=== PATIENT | female | born 1985 | race Caucasian/White ===

== ENCOUNTER → 2017-10-20 | Outpatient (REF) | payer OTHER | LOC: M SFHCWAGY 09:32 | DX: Z12.4 Encounter for screening for malignant neoplasm of cervix (principal) | CPT/HCPCS: 88142 ==

== ENCOUNTER → 2017-12-09 | Outpatient (CLI) | payer OTHER ==
[2017-12-09 10:11] LABS: HEMATOCRIT 41.9 % (36.0-47.0); HEMOGLOBIN 14.7 g/dl (12.0-16.0); MEAN CORPUSCULAR HEMOGLOBIN 29.8 pg (27.0-33.0); MEAN CORPUSCULAR HGB CONC 35.1 g/dl (32.0-36.5); MEAN CORPUSCULAR VOLUME 84.8 fl (80.0-96.0); PLATELET COUNT, AUTOMATED 290 10^3/uL (150-450); RED BLOOD COUNT 4.94 10^6/uL (4.00-5.40); RED CELL DISTRIBUTION WIDTH 11.9 % (11.5-14.5); WHITE BLOOD COUNT 5.5 10^3/uL (4.0-10.0)
[2017-12-09 10:42] LABS: ALBUMIN 4.2 GM/DL (3.2-5.2); ALBUMIN/GLOBULIN RATIO 1.24 (1.00-1.93); ALKALINE PHOSPHATASE 59 U/L (45-117); ALT/SGPT 17 U/L (12-78); ANION GAP 7 MEQ/L (8-16); AST/SGOT 12 U/L (7-37); BILIRUBIN,TOTAL 0.7 MG/DL (0.2-1.0); BLOOD UREA NITROGEN 11 MG/DL (7-18); CALCIUM LEVEL 8.8 MG/DL (8.5-10.1); CARBON DIOXIDE LEVEL 29 MEQ/L (21-32); CHLORIDE LEVEL 102 MEQ/L (98-107); CHOLESTEROL LEVEL 180 MG/DL (<200); CHOLESTEROL RISK RATIO 2.307 (<5); CREATININE FOR GFR 0.74 MG/DL (0.55-1.30); GLOMERULAR FILTRATION RATE > 60.0 (>60); GLUCOSE, FASTING 78 MG/DL (70-100); HDL CHOLESTEROL 78 MG/DL (>40); IRON (FE) 156 UG/DL (50-170); LDL CHOLESTEROL 84.2 MG/DL (<100); NON-HDL-C 102 MG/DL; PERCENT SATURATION 41.4 % (13.2-45.0); POTASSIUM SERUM 4.1 MEQ/L (3.5-5.1); SODIUM LEVEL 138 MEQ/L (136-145); THYROXINE (T4) 16.5 UG/DL (4.5-12.0); TOTAL 25(OH) VITAMIN D 25.4 NG/ML (30.0-100.0); TOTAL IRON BINDING CAPACITY 377 UG/DL (250-450); TOTAL PROTEIN 7.6 GM/DL (6.4-8.2); TRIGLYCERIDES LEVEL 89 MG/DL (<150)
[2017-12-09 10:43] LABS: TOTAL T3 137.9 NG/DL (60.0-181.0)
== END ==
LOC: M LAB 08:53
DX: D64.9 Anemia, unspecified (principal); E03.9 Hypothyroidism, unspecified; R53.83 Other fatigue
CPT/HCPCS: 83550

== ENCOUNTER → 2018-01-17 | Outpatient (REF) | payer OTHER | LOC: M LAB REF 18:55 | DX: D22.4 Melanocytic nevi of scalp and neck (principal) ==

== ENCOUNTER → 2018-10-24 | Outpatient (CLI) | payer OTHER ==
[2018-10-24 14:07] LABS: CHLAMYDIA DNA AMPLIFICATION NEGATIVE (NEGATIVE); GC DNA AMPLIFICATION NEGATIVE (NEGATIVE)
--- NOTE | 2018-10-25 05:34 | REP ---
Clinical: Pelvic pain . Technique: Transabdominal pelvic ultrasound followed by transvaginal examination for better evaluation of the endometrium and adnexa with color Doppler evaluation of the ovaries. Findings: Bladder is unremarkable and measures 12.2 x 11.6 x 7.3 cm . Normal retroverted uterus measures 8.9 x 3.9 x 5.4 cm . The endometrial complex measures 12.1 mm thickness. No discrete uterine or endometrial abnormalities are appreciated. Bilateral ovaries are normal in appearance and vascularity without evidence for torsion. Right ovary measures 3.3 x 1.7 x 3.7 cm ; R I = 0.41 . Left ovary measures 2.5 x 1.6 x 2.5 cm ; R I = 0.57 . Trace free fluid is nonspecific and likely physiologic. No adnexal mass lesion identified. Impression: 1. Normal pelvic ultrasound.
== END ==
LOC: M WHC 10:32
PROVIDERS: ATTEND Nurse Practitioner Family
DX: Z11.3 Encounter for screening for infections with a predominantly sexual mode of transmission (principal); R30.0 Dysuria; R10.2 Pelvic and perineal pain

== ENCOUNTER → 2018-11-02 | Outpatient (CLI) | payer OTHER ==
[2018-11-02 08:47] LABS: HEMATOCRIT 41.6 % (36.0-47.0); HEMOGLOBIN 14.3 g/dl (12.0-15.5); MEAN CORPUSCULAR HEMOGLOBIN 29.3 pg (27.0-33.0); MEAN CORPUSCULAR HGB CONC 34.4 g/dl (32.0-36.5); MEAN CORPUSCULAR VOLUME 85.2 fl (80.0-96.0); PLATELET COUNT, AUTOMATED 234 10^3/uL (150-450); RED BLOOD COUNT 4.88 10^6/uL (4.00-5.40); WHITE BLOOD COUNT 5.8 10^3/uL (4.0-10.0)
[2018-11-02 09:15] LABS: ERYTHROCYTE SEDIMENTATION RATE 3 mm/hr (0-20)
[2018-11-02 09:22] LABS: ALBUMIN 4.2 GM/DL (3.2-5.2); ALT/SGPT 16 U/L (12-78); BILIRUBIN,TOTAL 0.7 MG/DL (0.2-1.0); BLOOD UREA NITROGEN 10 MG/DL (7-18); CALCIUM LEVEL 9.2 MG/DL (8.5-10.1); CARBON DIOXIDE LEVEL 28 MEQ/L (21-32); CHLORIDE LEVEL 106 MEQ/L (98-107); CHOLESTEROL LEVEL 159 MG/DL (<200); CHOLESTEROL RISK RATIO 2.304 (<5); CREATININE FOR GFR 0.71 MG/DL (0.55-1.30); GLOMERULAR FILTRATION RATE > 60.0 (>60); GLUCOSE, FASTING 85 MG/DL (70-100); HDL CHOLESTEROL 69 MG/DL (>40); IRON (FE) 124 UG/DL (50-170); LDL CHOLESTEROL 75 MG/DL (<100); NON-HDL-C 90 MG/DL; PERCENT SATURATION 37.5 % (13.2-45.0); POTASSIUM SERUM 4.1 MEQ/L (3.5-5.1); SODIUM LEVEL 141 MEQ/L (136-145); TOTAL IRON BINDING CAPACITY 331 UG/DL (250-450); TOTAL PROTEIN 6.9 GM/DL (6.4-8.2); TRIGLYCERIDES LEVEL 76 MG/DL (<150)
[2018-11-02 09:52] LABS: TOTAL 25(OH) VITAMIN D 35.1 NG/ML (30.0-100.0)
== END ==
LOC: M LAB 08:09
PROVIDERS: ATTEND Family Medicine
DX: D64.9 Anemia, unspecified (principal); R53.83 Other fatigue; E03.9 Hypothyroidism, unspecified

== ENCOUNTER → 2018-11-10 | Outpatient (CLI) | payer OTHER ==
[~2018-11-10] MED LIST: E-Z-GAS II EFFERVESCENT PACKET (SODIUM BICARB./CITRIC ACID/SIMETHICONE) As Ordered ONE; E-Z-HD 98% w/w 340GM SUSP BTL As Ordered ONE; E-Z-PAQUE 96% w/w SUSP 176GM BTL As Ordered ONE
--- NOTE | 2018-11-10 09:16 | REP ---
Chest two views HISTORY: Abdominal pain Comparison: None A calcified granuloma is present in the right upper lobe. The left lung is clear. The heart is normal in size. The pulmonary vasculature is normal in appearance. The bony structure is intact. IMPRESSION: No acute disease. Electronically Signed by Nadeem Valadez MD 11/10/2018 09:08 A
--- NOTE | 2018-11-10 09:38 | REP ---
RIGHT UPPER QUADRANT ULTRASOUND: Real-time sonographic evaluation of the right upper quadrant performed. The gallbladder demonstrates no evidence of intraluminal sludge or calculi, wall thickening or pericholecystic fluid. There is no intrahepatic or extrahepatic biliary dilatation, common bile duct measuring 3 mm. The liver and pancreas demonstrates homogeneous echotexture with no gross mass. Right kidney demonstrates no hydronephrosis with normal size 13.1 cm in length. IMPRESSION: Negative right upper quadrant ultrasound. Electronically Signed by Mohsen Elias MD 11/10/2018 11:42 A
--- NOTE | 2018-11-10 16:33 | REP ---
Upper GI air contrast The procedure was performed under the direct supervision of Dr. Matthews. The images were reviewed with Dr. Matthews The knitter helper film shows no organomegaly or pathological masses. The intestinal gas pattern is non-specific. Liquid barium and gas producing crystals were given in the erect position as well as liquid barium in the prone oblique position in order to perform a double contrast upper GI examination. The oral and pharyngeal stages of deglutition are unremarkable. Esophageal transport is prompt and efficient and there is no esophagitis, stricture, mucosal ring or hiatal hernia. Gastroesophageal reflux is not demonstrated on this examination. The stomach singh are normally outlined . The rugal folds are smooth and regular. There is no gastritis neoplasm or ulcer disease. The duodenal singh are normally outlined . The mucosal folds are smooth and regular. There is no duodenitis pancreatitis peptic ulcer disease or neoplasm. The visualized portion of the proximal small bowel appears normal in course and caliber. Impression: Essentially unremarkable double contrast upper GI examination. 0.4 minutes of fluoro time was utilized for this procedure. Reviewed by BERYL Robin 11/10/2018 03:48 P Electronically Signed by Nestor Matthews MD 11/10/2018 04:24 P
== END ==
LOC: M RAD 07:46
PROVIDERS: ATTEND Family Medicine
DX: R10.9 Unspecified abdominal pain (principal); K27.9 Peptic ulcer, site unspecified, unspecified as acute or chronic, without hemorrhage or perforation

== ENCOUNTER → 2019-01-02 | Outpatient (REF) | payer OTHER ==
[~2019-01-02] MED LIST changes: -E-Z-GAS II EFFERVESCENT PACKET (SODIUM BICARB./CITRIC ACID/SIMETHICONE) As Ordered ONE; -E-Z-HD 98% w/w 340GM SUSP BTL As Ordered ONE; -E-Z-PAQUE 96% w/w SUSP 176GM BTL As Ordered ONE; +KLON1TAB PO; +MULT1TAB10 PO; +OMEP20CA3 PO
[2019-01-04 14:12] LABS: HPV HYBRID CAPTURE II Negative (Negative)
== END ==
LOC: M LAB REF 17:55
PROVIDERS: ATTEND Obstetrics & Gynecology
DX: Z12.4 Encounter for screening for malignant neoplasm of cervix (principal)

== ENCOUNTER 2019-01-19 07:43 | Day surgery (SDC) | payer OTHER ==
[~2019-01-19] VITALS: Ht 170.2 cm; Wt 66.0 kg
[~2019-01-19 07:43] MED LIST changes: +LR 1,000 ML IV ONE
[2019-01-19 08:15] LABS: HEMATOCRIT 38.6 % (36.0-47.0); HEMOGLOBIN 13.7 g/dl (12.0-15.5); MEAN CORPUSCULAR HEMOGLOBIN 30.2 pg (27.0-33.0); MEAN CORPUSCULAR HGB CONC 35.5 g/dl (32.0-36.5); MEAN CORPUSCULAR VOLUME 85.2 fl (80.0-96.0); PLATELET COUNT, AUTOMATED 252 10^3/uL (150-450); RED BLOOD COUNT 4.53 10^6/uL (4.00-5.40)
[2019-01-19] MEDS ORDERED: TRI-TAB16 PO (08:18)
[2019-01-19] MEDS ORDERED: dexameTHASONE 4 MG/ML 1ML VIAL (J1100) As Ordered ONE (08:21)
[2019-01-19] MEDS ORDERED: fentaNYL 250 MCG/5 ML INJECTION (J3010) As Ordered ONE (08:21)
[2019-01-19] MEDS ORDERED: ROCURONIUM BROMIDE 50 MG/5 ML VIAL As Ordered ONE (08:21)
[2019-01-19] MEDS ORDERED: KETOROLAC 60 MG/2 ML VIAL (J1885) As Ordered ONE (08:21)
[2019-01-19] MEDS ORDERED: MIDAZOLAM INJ 2 MG/2 ML VIAL (J2250) As Ordered ONE (08:21)
[2019-01-19] MEDS ORDERED: LIDOCAINE 2% INJ 100 MG/5 ML SDV (FOR ANES.) As Ordered ONE (08:21)
[2019-01-19] MEDS ORDERED: PROPOFOL 200 MG/20 ML VIAL As Ordered ONE (08:21)
[2019-01-19 08:25] LABS: HCG, SERUM QUALITATIVE NEGATIVE (NEGATIVE)
[2019-01-19] MEDS ORDERED: SCOPOLAMINE 1MG TRANSDERMAL PATCH TOP ONE (09:00)
[2019-01-19] MEDS ORDERED: METOCLOPRAMIDE INJ 10MG/2ML VIAL (J2765) As Ordered ONE (09:42)
[2019-01-19] MEDS ORDERED: ACETAMINOPHEN 1000MG 100ML IV BTL (OFIRMEV) (J0131 PER 10MG) As Ordered ONE (09:53)
[2019-01-19] MEDS ORDERED: PHENYLephrine HCL 500 MCG/5 ML (100MCG/ML) SYRINGE (J2370) As Ordered ONE (09:53)
[2019-01-19] MEDS ORDERED: LIDOCAINE 1% SDV INJ 30 ML VIAL As Ordered ONE (09:55)
[2019-01-19] MEDS ORDERED: SILVER NITRATE APPLICATOR As Ordered ONE (09:55)
[2019-01-19] MEDS ORDERED: BUPIVACAINE HCL 0.25% 30 ML VIAL As Ordered ONE (09:56)
[2019-01-19] MEDS ORDERED: METHYLENE BLUE 0.5% (5MG/ML) 10 ML AMP (PROVAYBLUE)(Q9968 PER 1MG) As Ordered ONE (09:56)
[2019-01-19] MEDS ORDERED: ePHEDrine SULFATE 25 MG/5 ML(5MG/ML) SYRINGE As Ordered ONE (10:10)
[2019-01-19] MEDS ORDERED: NEOSTIGMINE 10 MG/10 ML VIAL (J2710) As Ordered ONE (10:34)
[2019-01-19] MEDS ORDERED: GLYCOPYRROLATE INJ 0.2 MG/ML 2 ML VIAL As Ordered ONE (10:34)
[2019-01-19] MEDS ORDERED: LR 1,000 ML IV SCH ×2 (12:15)
[2019-01-19] MEDS ORDERED: ONDANSETRON 4MG/2ML VIAL (J2405) IV PRN (12:15)
[2019-01-19] MEDS ORDERED: PERCOCET 5MG/325MG TAB PO PRN (12:15)
[2019-01-19] MEDS ORDERED: PERCOCET PO (12:35)
[2019-01-19] MEDS ORDERED: IBUP80TA PO (12:37)
[2019-01-19] MEDS ORDERED: KETOROLAC 30 MG/ML VIAL (J1885) As Ordered ONE (13:26)
[2019-01-19] MEDS ORDERED: KETOROLAC 30 MG/ML VIAL (J1885) IV PRN (13:45)
[2019-01-19 14:10] VITALS: BP 97/53
--- NOTE | 2019-01-19 17:53 | RO ---
DATE OF PROCEDURE: 01/19/2019 PREOPERATIVE DIAGNOSES: 1. Chronic pelvic pain. 2. Infertility/subfertility. POSTOPERATIVE DIAGNOSES: 1. Chronic pelvic pain. 2. Infertility/subfertility. 3. Endometriosis. 4. Uterine leiomyomas, both subserosal (a 1 cm fundal and a 3 cm anterior lower uterine segment). PROCEDURES PERFORMED: 1. Diagnostic hysteroscopy with dilation and curettage 2. Laparoscopic fulguration and biopsy of endometriosis with chromopertubation. SURGEON: Jason Wade DO WELDER APPRENTICE ARC: None. ANESTHESIA TYPE: General endotracheal. SPECIMENS SENT TO PATHOLOGY: Peritoneal biopsies. ESTIMATED BLOOD LOSS: 5 mL. FLUIDS REPLACED: 800 mL lactated Ringer's. DRAINS: Oneill catheter 400 mL urine output. COMPLICATIONS: None. LAPAROSCOPIC FINDINGS: 1. Endometriotic implants in the following locations: Left pelvic sidewall (fulgurated), right uterosacral ligament (fulgurated), right ureter. 2. Uterine leiomyomas, 1 cm subserosal fundal and 3 cm subserosal anterior lower uterine segment just above the bladder. 3. Uterus sounded to 9 cm; other than two leiomyomas, there is normal uterine size, shape, and contour. 4. Hysteroscopic findings: Normal intrauterine cavity. No space-occupying mass. Bilateral ostia of the fallopian tubes were visualized and normal. No intrauterine synechiae. 5. Additional Laparoscopic findings: Normal appearing appendix, normal appearing liver edge and gallbladder. INDICATION: Stefany is a 33-year-old 1, para 1. She has a longstanding history of chronic pelvic pain that she has treated with combined oral contraceptives. She also has difficulty conceiving, and she would like a diagnostic/operative workup. The patient understood the possibility of fulguration of endometriosis. The goal of the surgery was to assess for etiology of chronic pelvic pain, and evaluate the intrauterine cavity and the intra-abdominal cavity and to assess her anatomy (and the patency of her fallopian tubes). DESCRIPTION OF PROCEDURE: The patient was counseled and consented on the risks, benefits, indications and alternatives of the procedure. Informed consent was obtained. She was taken to the operating room with an IV running and placed on the operating table in the dorsal supine position. General anesthesia was administered, and the airway secured without any difficulty. She was placed in the low lithotomy position. She was prepared and draped in the normal sterile fashion. A time-out was performed per protocol. A Oneill catheter was placed under sterile conditions. A sterile speculum was placed with good visualization of the cervix. The anterior lip of the cervix was grasped with a single-tooth tenaculum and downward traction was applied. The cervix was sequentially dilated with Bear dilators. The hysteroscope was placed transcervically into the intrauterine cavity with the findings noted above. A sharp curettage was performed throughout the entire intrauterine cavity for endometrial assessment. Given the lack of any significant findings, the hysteroscope was removed. The ZUMI uterine manipulator was placed transcervically into the intrauterine cavity without any difficulty. The single-tooth tenaculum was removed. The sterile speculum was removed. A sterile glove switch was performed. Attention was turned to the abdomen. 0.25% Marcaine was injected into the umbilicus. A 5 mm umbilical incision was made with the #11 blade. Through this incision a Veress needle was placed into the intraperitoneal cavity. Intraperitoneal placement was confirmed with ease of flow of normal saline, negative return on aspiration and a positive drop test. The abdomen was insufflated with gas. Opening pressure was 3 mmHg. The abdomen was insufflated with 2.5 liters of gas. The Veress needle was removed. A size 5 mm Erwin laparoscopic trocar was placed through the umbilical incision into the intraperitoneal cavity without any difficulty. No incidental bleeding or injury was noted. Two additional laparoscopic port sites were placed in left lower abdomen through 5 mm incisions under direct laparoscopic visualization. These 5 mm cannulas were placed without any difficulty. Attention was turned to the uterus, fallopian tubes and ovaries to inspect pelvic anatomy. The findings are noted above. The endometriotic implants on the left pelvic sidewall were biopsied and sent to pathology. The right uterosacral ligament endometriotic implants were biopsied and sent to pathology. These spots were then fulgurated with the monopolar spatula and excellent hemostasis was noted. These spots were well away from any vital structures, or bowel or ureter. There was one endometriotic implant over the right ureter was left alone for safety purposes. Chromopertubation was performed. Bilateral fallopian tube fill and spill was noted with the methylene blue-dyed normal saline. The fluid was suctioned out. There was no evidence of hydrosalpinx or periadnexal adhesions. Once again, the endometriotic implants that were fulgurated were inspected and noted to be hemostatic. Gas was released from the abdomen. The patient was taken out of Trendelenburg, and the pelvis was inspected during this time. Excellent hemostasis was still noted throughout. The laparoscopic cannulas were removed. The skin incisions were closed with #4-0 Monocryl in a subcuticular fashion and reinforced with Dermabond. The ZUMI uterine manipulator was removed, the single-tooth tenaculum sites were removed. All instruments were accounted for per protocol. Sponge, lap and needle, instrument counts were correct per protocol. The patient tolerated the entire procedure very well. She was transferred to the post-anesthesia care unit (PACU) in good and stable condition. CLAUDIA
== END 2019-01-19 14:20 | disposition home or self-care (01) ==
LOC: M SDC 07:43
PROVIDERS: ATTEND Obstetrics & Gynecology
DX: R10.2 Pelvic and perineal pain (principal); D25.2 Subserosal leiomyoma of uterus; N97.9 Female infertility, unspecified; K21.9 Gastro-esophageal reflux disease without esophagitis; J45.909 Unspecified asthma, uncomplicated; F32.9 Major depressive disorder, single episode, unspecified; F41.9 Anxiety disorder, unspecified; N80.0 Endometriosis of uterus; Z79.899 Other long term (current) drug therapy; Z88.8 Allergy status to other drugs, medicaments and biological substances
CPT/HCPCS: 36415; 58350; 58558; 58662; 84703; 85027; 86850; 86900; 86901; 88305; J0131; J1100; J1885; J2250; J2370; J2405; J2710; J2765; J3010; Q9968

== ENCOUNTER 2019-05-29 12:04 | Emergency (ER) | payer OTHER ==
[~2019-05-29] VITALS: Ht 170.2 cm; Wt 60.6 kg
[~2019-05-29 12:04] MED LIST changes: +IBUP80TA PO; -LR 1,000 ML IV ONE; -OMEP20CA3 PO; +OMEP20CA4 PO; +PERCOCET PO; +TRI-TAB16 PO
[2019-05-29] MEDS ORDERED: METH20TA29 (12:12)
[2019-05-29 12:58] LABS: BASO # 0.1 10^3/uL (0.0-0.2); BASO % 1.3 % (0.0-1.0); EOS # 0.1 10^3/uL (0.0-0.50); EOS % 1.5 % (0.0-3.0); HEMATOCRIT 44.2 % (36.0-47.0); HEMOGLOBIN 15.1 g/dl (12.0-15.5); LYMPH # 2.4 10^3/uL (1.5-4.5); LYMPH % 43.4 % (24.0-44.0); MEAN CORPUSCULAR HEMOGLOBIN 30.6 pg (27.0-33.0); MEAN CORPUSCULAR HGB CONC 34.2 g/dl (32.0-36.5); MEAN CORPUSCULAR VOLUME 89.5 fl (80.0-96.0); MONO # 0.4 10^3/uL (0.0-0.8); MONO % 6.4 % (0.0-5.0); NEUTROPHILS # 2.6 10^3/uL (1.8-7.7); NEUTROPHILS % 47.2 % (36.0-66.0); PLATELET COUNT, AUTOMATED 263 10^3/uL (150-450); RED BLOOD COUNT 4.94 10^6/uL (4.00-5.40); WHITE BLOOD COUNT 5.5 10^3/uL (4.0-10.0)
[2019-05-29 13:15] LABS: ALBUMIN 4.5 GM/DL (3.2-5.2); ALT/SGPT 19 U/L (12-78); BILIRUBIN,DIRECT 0.2 MG/DL (0.0-0.2); BILIRUBIN,TOTAL 0.5 MG/DL (0.2-1.0); BLOOD UREA NITROGEN 6 MG/DL (7-18); CALCIUM LEVEL 9.6 MG/DL (8.5-10.1); CARBON DIOXIDE LEVEL 30 MEQ/L (21-32); CHLORIDE LEVEL 106 MEQ/L (98-107); CREATININE FOR GFR 0.75 MG/DL (0.55-1.30); GLOMERULAR FILTRATION RATE > 60.0 (>60); GLUCOSE, FASTING 91 MG/DL (70-100); LIPASE 137 U/L (73-393); POTASSIUM SERUM 4.1 MEQ/L (3.5-5.1); SODIUM LEVEL 142 MEQ/L (136-145); TOTAL PROTEIN 7.5 GM/DL (6.4-8.2)
[2019-05-29 13:43] LABS: CPK CREATINE PHOSPHOKINASE 116 U/L (26-192); THYROID STIMULATING HORMONE 0.981 uIU/ML (0.358-3.740)
[2019-05-29 13:44] LABS: TOTAL 25(OH) VITAMIN D 50.4 NG/ML (30.0-100.0); VITAMIN B12 LEVEL 622 PG/ML (247-911)
[2019-05-29 13:59] VITALS: BP 102/59
[2019-05-31 00:08] LABS: Lyme Disease IgG/IgM Antibodie <0.91 ISR (0.00-0.90); Lyme Disease IgM Ab Quantitati <0.80 index (0.00-0.79)
== END 2019-05-29 13:58 | disposition home or self-care (01) ==
LOC: M ED 12:04
DX: F33.9 Major depressive disorder, recurrent, unspecified (principal); R52 Pain, unspecified; Z79.3 Long term (current) use of hormonal contraceptives; Z88.1 Allergy status to other antibiotic agents; Z91.048 Other nonmedicinal substance allergy status

== ENCOUNTER → 2019-05-31 | Outpatient (CLI) | payer OTHER ==
[~2019-05-31] MED LIST changes: +METH20TA29
[2019-05-31 10:28] LABS: HEMATOCRIT 40.3 % (36.0-47.0); HEMOGLOBIN 13.7 g/dl (12.0-15.5); MEAN CORPUSCULAR HEMOGLOBIN 30.4 pg (27.0-33.0); MEAN CORPUSCULAR VOLUME 89.4 fl (80.0-96.0); PLATELET COUNT, AUTOMATED 219 10^3/uL (150-450); RED BLOOD COUNT 4.51 10^6/uL (4.00-5.40); WHITE BLOOD COUNT 5.2 10^3/uL (4.0-10.0)
[2019-05-31 10:47] LABS: ALBUMIN 3.8 GM/DL (3.2-5.2); ALT/SGPT 18 U/L (12-78); BILIRUBIN,TOTAL 0.4 MG/DL (0.2-1.0); BLOOD UREA NITROGEN 7 MG/DL (7-18); CALCIUM LEVEL 8.7 MG/DL (8.5-10.1); CARBON DIOXIDE LEVEL 27 MEQ/L (21-32); CHLORIDE LEVEL 107 MEQ/L (98-107); CHOLESTEROL LEVEL 133 MG/DL (<200); CHOLESTEROL RISK RATIO 2.145 (<5); CREATININE FOR GFR 0.76 MG/DL (0.55-1.30); GLOMERULAR FILTRATION RATE > 60.0 (>60); GLUCOSE, FASTING 80 MG/DL (70-100); HDL CHOLESTEROL 62 MG/DL (>40); LDL CHOLESTEROL 48 MG/DL (<100); NON-HDL-C 71 MG/DL; POTASSIUM SERUM 3.8 MEQ/L (3.5-5.1); RHEUMATOID FACTOR QUANT < 10.0 IU/ML (<15.0); SODIUM LEVEL 140 MEQ/L (136-145); TOTAL PROTEIN 6.6 GM/DL (6.4-8.2); TRIGLYCERIDES LEVEL 113 MG/DL (<150)
[2019-05-31 11:11] LABS: ERYTHROCYTE SEDIMENTATION RATE 5 mm/hr (0-20)
--- NOTE | 2019-05-31 12:02 | REP ---
REASON FOR EXAM: Back pain and sciatica. FINDINGS: Five views of the lumbosacral spine show no acute fracture, dislocation or subluxation. The intervertebral disc spaces are symmetric and well maintained. There is no spondylolisthesis. The pedicles are intact bilaterally and there is no destructive osseous lesions. IMPRESSION: Unremarkable lumbosacral spine series. Electronically Signed by Kai Duncan DO 05/31/2019 03:41 P
[2019-06-01 14:17] LABS: ANTINUCLEAR ANTIBODIES DIRECT Negative (Negative)
== END ==
LOC: M LAB 09:15
PROVIDERS: ATTEND Family Medicine
DX: D64.9 Anemia, unspecified (principal)

== ENCOUNTER 2019-06-20 12:43 | Outpatient (RCR) | payer OTHER | END 2019-07-16 | disposition home or self-care (01) | LOC: M PT 12:43 | PROVIDERS: ATTEND Family Medicine | DX: Z51.89 Encounter for other specified aftercare (principal); M54.5 Low back pain ==

== ENCOUNTER → 2019-06-21 | Outpatient (CLI) | payer OTHER ==
--- NOTE | 2019-06-21 13:59 | REP ---
DIAGNOSTIC MAMMOGRAM LEFT BREAST WITH 3D TOMOSYNTHESIS AND LEFT BREAST ULTRASOUND: There is a history of a palpable lump in the upper outer quadrant of the left breast, which is marked on the skin. There is no family history of breast cancer. Tyrer-Cuzick lifetime risk of breast cancer 15.2%. 3D tomosynthesis imaging is performed of the left breast with spot compression views also obtained. There are no prior studies. There is heterogeneous dense fibroglandular tissue diffusely in the left breast. I see no discrete mass or architectural distortion. No clustered microcalcifications are seen. Real-time sonographic evaluation of the left breast performed at the site of the palpable lump outer left breast. Dense fibroglandular tissue is seen. There is no discrete cystic or solid mass. IMPRESSION: BIRADS 2: BI-RADS/ACR category 2 mammogram. Benign Findings. ACR 2 benign. No mass or clustered microcalcifications mammographically. There is no mammographic or sonographic evidence of a mass at the site of the palpable abnormality in the outer left breast. A negative mammogram and ultrasound should not deter biopsy if there is a clinical suspicious palpable mass present. Clinical correlation and followup is recommended. This mammogram was interpreted with the aid of an FDA-approved computer-aided detection system. A. Negative x-ray reports should not delay biopsy if a dominant or clinically suspicious mass is present. B. Four to eight percent of cancers are not identified by x-ray. C. Adenosis and dense breasts may obscure an underlying neoplasm. The patient states she/he had a clinical breast exam in June 2019. The patient letter being requested is M2. Electronically Signed by Mohsen Elias MD 06/21/2019 04:40 P
== END ==
LOC: M RAD 11:04
PROVIDERS: ATTEND Obstetrics & Gynecology
DX: N63.20 Unspecified lump in the left breast, unspecified quadrant (principal)
CPT/HCPCS: 76642; 77065; G0279

== ENCOUNTER → 2019-12-18 | Outpatient (REF) | payer OTHER ==
[~2019-12-18] MED LIST changes: +OMEP1CAP73 PO; -OMEP20CA4 PO
[2019-12-18 17:58] LABS: THYROID STIMULATING HORMONE 0.994 uIU/ML (0.358-3.740)
[2019-12-18 18:02] LABS: ESTRADIOL 27.9 PG/ML; FOLLICLE STIMULATING HORMONE 4.1 mIU/mL
[2019-12-20 14:10] LABS: TESTOSTERONE FREE (DIRECT) 1.3 pg/mL (0.0-4.2)
== END ==
LOC: M PLALAB 12:13
PROVIDERS: ATTEND Obstetrics & Gynecology
DX: F32.81 Premenstrual dysphoric disorder (principal)

== ENCOUNTER 2020-03-12 15:57 | Emergency (ER) | payer OTHER ==
[~2020-03-12] VITALS: Ht 170.2 cm; Wt 67.8 kg
[~2020-03-12 15:57] MED LIST changes: -CYCL-707 PO; -DRIS50003 PO; -LIDO5DIS41 TOP; -VITA500C24 PO; -YAZ1TAB PO
[2020-03-12] MEDS ORDERED: VITA500C24 PO (16:06)
[2020-03-12] MEDS ORDERED: YAZ1TAB PO (16:06)
[2020-03-12] MEDS ORDERED: DRIS50003 PO (16:06)
[2020-03-12 17:17] LABS: BASO # 0.1 10^3/uL (0.0-0.2); BASO % 0.6 % (0.0-1.0); EOS # 0.1 10^3/uL (0.0-0.5); EOS % 1.4 % (0.0-3.0); HEMATOCRIT 40.2 % (36.0-47.0); HEMOGLOBIN 14.1 g/dl (12.0-15.5); LYMPH # 2.5 10^3/uL (1.5-5.0); LYMPH % 24.9 % (24.0-44.0); MEAN CORPUSCULAR HEMOGLOBIN 30.2 pg (27.0-33.0); MEAN CORPUSCULAR HGB CONC 35.1 g/dl (32.0-36.5); MEAN CORPUSCULAR VOLUME 86.1 fl (80.0-96.0); MONO # 0.7 10^3/uL (0.0-0.8); MONO % 6.7 % (0.0-5.0); NEUTROPHILS # 6.6 10^3/uL (1.5-8.5); PLATELET COUNT, AUTOMATED 273 10^3/uL (150-450); RED BLOOD COUNT 4.67 10^6/uL (4.00-5.40); WHITE BLOOD COUNT 10.1 10^3/uL (4.0-10.0)
[2020-03-12] MEDS ORDERED: KETOROLAC 60MG 2ML VIAL IM ONE (18:00)
[2020-03-12] MEDS ORDERED: CYCLOBENZAPRINE 10MG TABLET PO ONE (19:15)
[2020-03-12] MEDS ORDERED: LIDOCAINE 5% (LIDODERM) PATCH TD ONE (19:15)
[2020-03-12] MEDS ORDERED: LIDO5DIS41 TOP (19:18)
[2020-03-12] MEDS ORDERED: CYCL-707 PO (19:18)
[2020-03-12 19:22] VITALS: BP 117/73
[2020-03-12] MEDS ORDERED: **NOTE PATIENT COMMENT** MISC XX SCH (21:00)
--- NOTE | 2020-03-12 22:49 | REP ---
TWO-VIEW CHEST: REASON: Chest pain. PRIORS: None. FINDINGS: The superior mediastinal structures are midline. The cardiac silhouette is unremarkable in size, shape, and position. The diaphragmatic surfaces of the lungs are regular, and the costophrenic angles are clear. The pulmonary nicholas are clear. The imaged osseous structures are intact. IMPRESSION: There is no acute cardiopulmonary disease. Electronically Signed by Kai Duncan DO 03/13/2020 11:58 A
== END 2020-03-12 19:30 | disposition home or self-care (01) ==
LOC: M ED 15:57
DX: M94.0 Chondrocostal junction syndrome [Tietze] (principal)
CPT/HCPCS: 71046; 80047; 84702; 85025; 85379; 96372; 99283; J1885

== ENCOUNTER → 2020-03-12 | Outpatient (CLI) | payer OTHER ==
[~2020-03-12] MED LIST changes: +CYCL-707 PO; +DRIS50003 PO; +LIDO5DIS41 TOP; +VITA500C24 PO; +YAZ1TAB PO
--- NOTE | 2020-03-13 04:22 | REP ---
Clinical: Right upper quadrant pain with nausea. Technique: Real time haider scale ultrasound examination using curved array transducer. Findings: Liver and pancreas are normal in contour, size, echogenicity without focal hepatic or pancreatic lesion identified. The gallbladder is normal and without gallstones, wall thickening, or pericholecystic fluid. No biliary ductal dilatation is appreciated and the common bile duct measures 2.6 mm diameter. The right kidney is normal in reniform shape without hydronephrosis and measures 10.4 x 5.2 x 3.3 cm. No ascites in the visualized right upper quadrant. Impression: Normal right upper quadrant ultrasound.
== END ==
LOC: M WHC 07:08
PROVIDERS: ATTEND Family Medicine
DX: R10.11 Right upper quadrant pain (principal); R11.0 Nausea

== ENCOUNTER 2020-03-26 21:32 | Inpatient (IN) | payer OTHER ==
[~2020-03-26] VITALS: Ht 170.2 cm; Wt 65.0 kg
[~2020-03-26 21:32] MED LIST changes: +CYCL-707 PO; +DRIS50003 PO; +LIDO5DIS41 TOP; +VITA500C24 PO; +YAZ1TAB PO
[2020-03-26] MEDS ORDERED: LORazepam 2 MG/ML VIAL IV STA ×2 (21:37→21:48)
[2020-03-26] MEDS ORDERED: LORazepam 2 MG/ML VIAL As Ordered ONE ×2 (21:42→22:25)
[2020-03-26] MEDS ORDERED: NS 1,000 ML IV ONE (21:45)
[2020-03-26] MEDS ORDERED: SERT-138 PO (21:49)
[2020-03-26 21:52] LABS: BASO # 0.1 10^3/uL (0.0-0.2); BASO % 1.2 % (0.0-1.0); EOS # 0.1 10^3/uL (0.0-0.5); EOS % 0.5 % (0.0-3.0); HEMATOCRIT 39.5 % (36.0-47.0); HEMOGLOBIN 13.9 g/dl (12.0-15.5); LYMPH # 2.5 10^3/uL (1.5-5.0); LYMPH % 22.3 % (24.0-44.0); MEAN CORPUSCULAR HEMOGLOBIN 30.1 pg (27.0-33.0); MEAN CORPUSCULAR HGB CONC 35.2 g/dl (32.0-36.5); MEAN CORPUSCULAR VOLUME 85.5 fl (80.0-96.0); MONO % 8.5 % (0.0-5.0); NEUTROPHILS # 7.5 10^3/uL (1.5-8.5); NEUTROPHILS % 67.2 % (36.0-66.0); PLATELET COUNT, AUTOMATED 341 10^3/uL (150-450); RED BLOOD COUNT 4.62 10^6/uL (4.00-5.40); WHITE BLOOD COUNT 11.2 10^3/uL (4.0-10.0)
[2020-03-26] MEDS ORDERED: LORazepam 2 MG/ML VIAL IV PRN (22:00)
[2020-03-26 22:35] LABS: ACETAMINOPHEN LEVEL < 2.0 UG/ML (10.0-30.0); ALBUMIN 4.1 GM/DL (3.2-5.2); ALT/SGPT 22 U/L (12-78); BILIRUBIN,DIRECT 0.1 MG/DL (0.0-0.2); BILIRUBIN,TOTAL 0.3 MG/DL (0.2-1.0); ETHYL ALCOHOL (ETHANOL) < 0.003 % (0.000-0.010); SALICYLATE LEVEL 4.5 MG/DL (5.0-30.0); TOTAL PROTEIN 7.5 GM/DL (6.4-8.2)
[2020-03-26 22:40] LABS: AMPHETAMINES LEVEL URINE NEGATIVE (NEGATIVE); BARBITURATES URINE NEGATIVE (NEGATIVE); BENZODIAZEPINES URINE NEGATIVE (NEGATIVE); CANNABINOIDS URINE POSITIVE (NEGATIVE); COCAINE METABOLITE URINE NEGATIVE (NEGATIVE); METHADONE URINE NEGATIVE (NEGATIVE); OPIATES URINE NEGATIVE (NEGATIVE); PHENCYCLIDINE URINE NEGATIVE (NEGATIVE)
--- NOTE | 2020-03-26 23:27 | REPVR ---
PROCEDURE INFORMATION: Exam: CT Head Without Contrast Exam date and time: 03/26/2020 11:00 PM Age: 34 years old Clinical indication: Pain; Headache; Additional info: AMS TECHNIQUE: Imaging protocol: Computed tomography of the head without contrast. Radiation optimization: All CT scans at this facility use at least one of these dose optimization techniques: automated exposure control; mA and/or kV adjustment per patient size (includes targeted exams where dose is matched to clinical indication); or iterative reconstruction. COMPARISON: No relevant prior studies available. FINDINGS: Brain: The white-haider differentiation is preserved demonstrating no acute territorial type infarct. Symmetric increased density is identified involving the parietal and temporal cortices, which is likely artifactual. Hemorrhage is considered less likely. No intracranial mass effect. There is no midline shift. Artifact limits evaluation of the noelle. Ventricles: No ventriculomegaly. Bones/joints: The calvarium demonstrates no evidence for a depressed fracture. Sinuses: Visualized sinuses are unremarkable. No fluid levels. Mastoid air cells: No mastoid effusion. Soft tissues: Unremarkable. IMPRESSION: 1. No acute territorial type infarct. 2. Symmetric increased density is identified involving the parietal and temporal cortices, which is likely artifactual. Hemorrhage is considered less likely. Correlation with prior studies or follow-up head CT in 12-24 hours is recommended. Electronically signed by: Camron Cortes On 03/26/2020 23:26:35 PM
--- NOTE | 2020-03-27 01:22 | REP ---
Clinical: Altered mental status . Comparison: 03/12/2020 . Findings: The mediastinum and cardiac silhouette are stable and within normal limits for portable technique. The lung nicholas are clear without acute consolidation, effusion, or pneumothorax. Skeletal structures are intact. Impression: No acute cardiopulmonary process appreciated. Electronically Signed by Garcia Lamas MD 03/27/2020 01:14 A
[2020-03-27] MEDS ORDERED: LORazepam 2 MG/ML VIAL IV STA (04:04)
[2020-03-27] MEDS ORDERED: LORazepam 2 MG/ML VIAL As Ordered ONE (04:10)
[2020-03-27] MEDS ORDERED: OLANZapine ORAL DISINTEGRATING TAB 5MG PO ONE (04:30)
--- NOTE | 2020-03-27 05:03 | REPVR ---
PROCEDURE INFORMATION: Exam: CT Head Without Contrast Exam date and time: 03/27/2020 5:00 AM Age: 34 years old Clinical indication: Altered mental status/memory loss; Confusion or disorientation; Patient HX: Repeat per Dr. Cortse request; Additional info: Request of Dr. Cortes - ? parenchymal bleed TECHNIQUE: Imaging protocol: Computed tomography of the head without contrast. Radiation optimization: All CT scans at this facility use at least one of these dose optimization techniques: automated exposure control; mA and/or kV adjustment per patient size (includes targeted exams where dose is matched to clinical indication); or iterative reconstruction. COMPARISON: CT Head without contrast 03/26/2020 10:57 PM FINDINGS: Brain: Normal. No hemorrhage. Unremarkable white matter. No mass effect. Ventricles: Normal. No ventriculomegaly. Bones/joints: Unremarkable. No acute fracture. Sinuses: Visualized sinuses are unremarkable. No fluid levels. Mastoid air cells: Visualized mastoid air cells are well aerated. Soft tissues: Unremarkable. IMPRESSION: No acute intracranial abnormality. Electronically signed by: Zhao Rose On 03/27/2020 05:03:09 AM
[2020-03-27] MEDS ORDERED: CYCL-707 PO (05:39)
[2020-03-27] MEDS ORDERED: LORY1TAB2 PO (05:39)
[2020-03-27] MEDS ORDERED: IBUP1TAB7 PO (05:47)
[2020-03-27] MEDS ORDERED: LIDO5TD TOP (05:49)
[2020-03-27] MEDS ORDERED: MAALOX 30 ML SUSP *UDC PO PRN (17:15)
[2020-03-27] MEDS ORDERED: OLANZapine ORAL DISINTEGRATING TAB 5MG PO PRN (17:15)
[2020-03-27] MEDS ORDERED: MOM 30ML SUSPENSION UDC PO PRN (17:15)
[2020-03-27 19:01] VITALS: BP 124/84
[2020-03-27] MEDS: OLANZapine ORAL DISINTEGRATING TAB 5MG PO SCH (20:43)
--- NOTE | 2020-03-27 21:28 | ECGEPIP ---
[facility] - ED Test Date: 2020-03-26 Pat Name: FABIÁN BAILEY Department: Room: - Gender: Female Inspector Aligning: marva : 1985 Requested By: Kavon Archuleta Order Number: [id number] Reading MD: Kavon Hazel Measurements Intervals [place] Rate: 83 P: 70 AR: 151 QRS: 78 QRSD: 80 T: 42 QT: 368 QTc: 433 Interpretive Statements SINUS RHYTHM POSSIBLE INCOMPLETE RIGHT BUNDLE BRANCH BLOCK NO PRIORS FOR COMPARISON Electronically Signed on 03-27-2020 21:28:28 EDT by Kavon Hazel
[2020-03-27] MEDS: traZODone 50 MG TAB PO PRN (22:15)
[2020-03-28 06:53] VITALS: BP 125/87
[2020-03-28] MEDS: OLANZapine ORAL DISINTEGRATING TAB 5MG PO SCH ×2 (08:48→20:17)
--- NOTE | 2020-03-28 09:19 | MHHPEPDOC ---
General Legal Status: 9.39 Chief Complaint "I talk too much. History of Present Illness HISTORY OF THE PRESENT ILLNESS: Patient is a 34 -year-old , female, who presents manic and distorted, she's bizarre and unable to engage in a meaningful conversation. She is admitted and during the initial evaluation she is so tangential and incoherent no meaningful interview is able to be completed. General: poor Speech: rapid Thought processes: tangential Thought content: psychotic delusions Abstract reasoning, and computation: impaired Description of associations: imparied Description of abnormal or psychotic thoughts:Unclear, appears to have psychotic processes going on. Judgment: poor Insight: poor Orientation: Alert and orientated 3 Recent and remote memory: Intact Attention span and concentration: impaired secondary to thought process Fund of knowledge: unable to determine Mood: "talking" Affect: flat, little reactivity Psychiatric Review of Systems Liat (4 or more days of): decreased need for sleep, still with energy, talkativity, pressured, flight of ideas, distractibility Past Psychiatric History Previous Psychiatric Diagnosis: bipolar. Previous Psychiatric Admissions: none noted. Suicide Attempts: unknown. Psychiatric Follow-up: none. Psychiatric medications: none. Past Medical History Medical Problems None noted Family Medical/Psychiatric HX Medical Problems Unknown Addiction History other Social History Unable to determine Assessment 34-year-old woman who is likely in a manic phase of bipolar Problem List Problems: (1) Bipolar 1 disorder, manic, moderate Status: Acute Response to Treatment: Uncontrolled Problem Specific Plan: Monitor Clinically Problem Text: Start Zyprexa 5 mg BID (2) Cannabis abuse Status: Chronic Initial Treatment Plan 1. Patient was admitted on a [9.39] status. 2. Complete history was obtained. 3. With patients permission, family will be contacted and database will be expanded. 4. Patients medication regimen will be reviewed and changed accordingly. 5. Patient will be provided with protected environment. 6. Patient will be treated with individual, group, and milieu therapies. 7. Patient will receive supportive psych-education. 8. Discharge planning will commence immediately. 9. Outpatient follow-up treatment will be strongly recommended. 10. The initial treatment plan will focus initially on: altered thoughts ESTIMATED LENGTH OF STAY: 3-5 DAYS. TIME SPENT COUNSELING AND COORDINATING INITIAL CARE: 20 minutes. Vital Signs Vital Signs Date Time Temp Pulse Resp B/P (MAP) Pulse Ox O2 Delivery O2 Flow Rate FiO2 03/28/20 06:53 98.4 79 18 125/87 (100) 98 Room Air Medications Scheduled Ethinyl Estradiol/Drospirenone (Loryna 3 mg-0.02 mg Tablet) 1 Each Tablet, 1 TAB PO DAILY, (Reported) Lidocaine (Lidocaine) 5% Adh..patch, 1 PATCH TOP DAILY, (Reported) 12 ON, 12 OFF, APPLY TO AFFECTED AREA Sertraline HCl (Sertraline HCl) 100 Mg Tablet, 100 MG PO QHS, (Reported) Scheduled PRN Cyclobenzaprine HCl (Cyclobenzaprine HCl) 10 Mg Tablet, 10 MG PO QPM PRN for MUSCLE SPASMS, (Reported) Ibuprofen (Ibuprofen) 800 Mg Tablet, 800 MG PO TID PRN for PAIN, (Reported) Allergies Coded Allergies: TAPE (Verified Allergy, Mild, bandaides rash, 03/12/20) azithromycin (Verified Allergy, Mild, RASH, 01/19/19) clarithromycin (Verified Allergy, Mild, rash, 03/12/20) Sulfa (Sulfonamide Antibiotics) (Verified Allergy, Unknown, rash, 03/26/20) MERRITT LENNON DO Mar 28, 2020 09:19
[2020-03-28 17:19] VITALS: BP 124/90
[2020-03-28] MEDS: traZODone 50 MG TAB PO PRN (20:17)
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
[2020-03-29] MEDS: ACETAMINOPHEN TAB 650MG DOSE (2X325MG) PO PRN (04:16)
[2020-03-29 06:25] VITALS: BP 140/92
[2020-03-29] MEDS: OLANZapine ORAL DISINTEGRATING TAB 5MG PO SCH ×2 (08:24→20:31)
--- NOTE | 2020-03-29 15:33 | MHIPNPDOC ---
[facility] Progress Note Progress Note DATE OF SERVICE: 03/29/20 HISTORY: She says this is the best she has felt ever, she says. She admits feeling all the time as if she had to be running away from depression and now she doesn't feel as if she has to do that. VITAL SIGNS: See below. NEW TEST RESULTS: See below CURRENT MEDICATIONS: See below. MENTAL STATUS EXAMINATION: Patient is a year old female, who is alert, cooperative, dressed in hospital clothes Speech: Is rapid, pressured, normal tone, volume Language skills are good. Thought processes including: circumstantial. Thought content: denies SI/HI, denies thought delusions, denies depressive symptoms Description of abnormal or psychotic thoughts: Denies TAV hallucinations, she is not responding to internal stimuli Judgment: limited Insight: limited Orientation: x 3 Recent and remote memory: fair Attention span and concentration: easily distracted but she is easily re directed. Language: adequate Fund of knowledge: average. Mood: elevated Affect: congruent with mood DIAGNOSES: 1. Bipolar 1 disorder, manic, moderate 2. Cannabis abuse ASSESSMENT: She wants to leave but she understands she is not ready at this time. Will start a small dose of Abilify, 2 mgs PO QHS and will continue with Zyprexa 5 mgs PO BID. She is slowly improving. MANAGEMENT PLAN: As above TIME SPENT: 15 minutes. Vital Signs Vital Signs Date Time Temp Pulse Resp B/P (MAP) Pulse Ox O2 Delivery O2 Flow Rate FiO2 03/29/20 06:25 97.4 105 16 140/92 (108) 03/28/20 06:53 98 Room Air Current Medications Current Medications Medications (Trade) Dose Ordered Sig/Sherie Route PRN Reason Start Time Stop Time Status Last Admin Dose Admin Acetaminophen (Tylenol Tab) 650 mg Q6HP PRN PO HEADACHE or DISCOMFORT 03/27/20 17:15 03/29/20 04:16 Al Hydrox/Mg Hydrox/Simethicone (Mylanta) 30 ml Q4HP PRN PO HEARTBURN/INDIGESTION 03/27/20 17:15 Home Med (Med Rec Complete!) ASDIRECTED XX 03/27/20 06:00 03/27/20 05:54 DC Lorazepam (Ativan) 1 mg STAT STAT IV 03/26/20 21:37 03/26/20 21:38 DC 03/26/20 21:55 Lorazepam (Ativan) 1 mg STAT STAT IV 03/26/20 21:48 03/26/20 21:50 DC 03/26/20 21:56 Lorazepam (Ativan) 1 mg STAT STAT IV 03/27/20 04:04 03/27/20 04:07 DC 03/27/20 04:15 Lorazepam (Ativan) 2 mg Q10MP PRN IV AGITATION 03/26/20 22:00 03/27/20 04:05 DC 03/26/20 22:31 Magnesium Hydroxide (Milk Of Magnesia) 30 ml DAILYPRN PRN PO CONSTIPATION 03/27/20 17:15 Olanzapine (ZyPREXA ZYDIS) 5 mg BID PO 03/27/20 21:00 03/29/20 08:24 Olanzapine (ZyPREXA ZYDIS) 5 mg Q8HP PRN PO AGITATION 03/27/20 17:15 Patient Own Medication (Patient'S Own Med) Loryna 3MG-0.02MG 1 TABLET DAILY PO 03/30/20 09:00 Trazodone HCl (Desyrel) 50 mg QHSP PRN PO INSOMNIA 03/27/20 17:15 03/28/20 20:17 Allergies Coded Allergies: TAPE (Verified Allergy, Mild, bandaides rash, 03/12/20) azithromycin (Verified Allergy, Mild, RASH, 01/19/19) clarithromycin (Verified Allergy, Mild, rash, 03/12/20) Sulfa (Sulfonamide Antibiotics) (Verified Allergy, Unknown, rash, 03/26/20) ELLE MELENDEZ MD Mar 29, 2020 15:01
[2020-03-29 16:24] VITALS: BP 101/77
[2020-03-29] MEDS: ARIPiprazole 2 MG TAB PO SCH (20:30)
[2020-03-29] MEDS: traZODone 50 MG TAB PO PRN (21:32)
[2020-03-30 06:40] VITALS: BP 98/62
[2020-03-30] MEDS: LORYNA PO SCH (08:20)
[2020-03-30] MEDS: OLANZapine ORAL DISINTEGRATING TAB 5MG PO SCH ×2 (08:20→20:18)
--- NOTE | 2020-03-30 11:39 | MHIPNPDOC ---
[facility] Progress Note Progress Note DATE OF SERVICE: 03/30/20 HISTORY: She says she feels good, she slept well, she eats well VITAL SIGNS: See below. NEW TEST RESULTS: See below CURRENT MEDICATIONS: See below. MENTAL STATUS EXAMINATION: Patient is a year old female, who is alert, cooperative, dressed in hospital clothes Speech: Is less rapid, less pressured, normal tone, volume Language skills are good. Thought processes including: more organized, less circumstantial Thought content: denies SI/HI, denies thought delusions, denies depressive symptoms Description of abnormal or psychotic thoughts: Denies TAV hallucinations, she is not responding to internal stimuli Judgment: improving Insight: improving Orientation: x 3 Recent and remote memory: good Attention span and concentration: improving, more focused Language: adequate Fund of knowledge: average. Mood: elevated Affect: congruent with mood DIAGNOSES: 1. Bipolar 1 disorder, manic, moderate 2. Cannabis abuse ASSESSMENT: She says she slept well, she feels better because she slept better last night with Abilify, she feels more rested. She says she will talk to her parents about her "boundaries" and that she needs their support. She says her father doesn't believe that she needs medications but her have told him that he needs to support the patient. MANAGEMENT PLAN: Continue TIME SPENT: 15 minutes. Vital Signs Vital Signs Date Time Temp Pulse Resp B/P (MAP) Pulse Ox O2 Delivery O2 Flow Rate FiO2 03/30/20 06:40 96.7 62 12 98/62 (74) Room Air 03/28/20 06:53 98 Current Medications Current Medications Medications (Trade) Dose Ordered Sig/Sherie Route PRN Reason Start Time Stop Time Status Last Admin Dose Admin Acetaminophen (Tylenol Tab) 650 mg Q6HP PRN PO HEADACHE or DISCOMFORT 03/27/20 17:15 03/29/20 04:16 Al Hydrox/Mg Hydrox/Simethicone (Mylanta) 30 ml Q4HP PRN PO HEARTBURN/INDIGESTION 03/27/20 17:15 Aripiprazole (AbiLIFY) 2 mg QHS PO 03/29/20 21:00 03/29/20 20:30 Home Med (Med Rec Complete!) ASDIRECTED XX 03/27/20 06:00 03/27/20 05:54 DC Lorazepam (Ativan) 1 mg STAT STAT IV 03/26/20 21:37 03/26/20 21:38 DC 03/26/20 21:55 Lorazepam (Ativan) 1 mg STAT STAT IV 03/26/20 21:48 03/26/20 21:50 DC 03/26/20 21:56 Lorazepam (Ativan) 1 mg STAT STAT IV 03/27/20 04:04 03/27/20 04:07 DC 03/27/20 04:15 Lorazepam (Ativan) 2 mg Q10MP PRN IV AGITATION 03/26/20 22:00 03/27/20 04:05 DC 03/26/20 22:31 Magnesium Hydroxide (Milk Of Magnesia) 30 ml DAILYPRN PRN PO CONSTIPATION 03/27/20 17:15 Olanzapine (ZyPREXA ZYDIS) 5 mg BID PO 03/27/20 21:00 03/30/20 08:20 Olanzapine (ZyPREXA ZYDIS) 5 mg Q8HP PRN PO AGITATION 03/27/20 17:15 Patient Own Medication (Patient'S Own Med) Loryna 3MG-0.02MG 1 TABLET DAILY PO 03/30/20 09:00 03/30/20 08:20 Trazodone HCl (Desyrel) 50 mg QHSP PRN PO INSOMNIA 03/27/20 17:15 03/29/20 21:32 Allergies Coded Allergies: TAPE (Verified Allergy, Mild, bandaides rash, 03/12/20) azithromycin (Verified Allergy, Mild, RASH, 01/19/19) clarithromycin (Verified Allergy, Mild, rash, 03/12/20) Sulfa (Sulfonamide Antibiotics) (Verified Allergy, Unknown, rash, 03/26/20) ELLE MELENDEZ MD Mar 30, 2020 11:39
[2020-03-30 16:27] VITALS: BP 102/66
[2020-03-30] MEDS: ARIPiprazole 2 MG TAB PO SCH (20:18)
[2020-03-30] MEDS: traZODone 50 MG TAB PO PRN (21:33)
[2020-03-31 06:48] VITALS: BP 109/62
[2020-03-31] MEDS: LORYNA PO SCH (08:22)
[2020-03-31] MEDS: OLANZapine ORAL DISINTEGRATING TAB 5MG PO SCH ×2 (08:23→20:41)
[2020-03-31 15:45] VITALS: BP 109/70
[2020-03-31] MEDS: traZODone 50 MG TAB PO PRN (20:40)
[2020-03-31] MEDS: ARIPiprazole 2 MG TAB PO SCH (20:40)
[2020-04-01] MEDS: ACETAMINOPHEN TAB 650MG DOSE (2X325MG) PO PRN (00:38)
[2020-04-01 06:56] VITALS: BP 136/80
[2020-04-01] MEDS: LORYNA PO SCH (08:05)
[2020-04-01] MEDS: OLANZapine ORAL DISINTEGRATING TAB 5MG PO SCH (08:05)
--- NOTE | 2020-04-01 09:21 | MHIPNPDOC ---
[facility] Progress Note Progress Note DATE OF SERVICE: 04/01/20 HISTORY: . VITAL SIGNS: See below. NEW TEST RESULTS: . CURRENT MEDICATIONS: See below. MENTAL STATUS EXAMINATION: Patient is a -year old female, who is . Speech: Is . Language skills are . Thought processes including: . Thought content: . Abstract reasoning, and computation: . Description of asso ciations: . Description of abnormal or psychotic thoughts: . Judgment: . Insight: [very limited, good, fair. poor]. Orientation: . Recent and remote memory: . Attention span and concentration: . Language: . Fund of knowledge: . Mood: . Affect: . DIAGNOSES: 1. . 2. . 3. . ASSESSMENT: MANAGEMENT PLAN: . TIME SPENT: minutes. Vital Signs Vital Signs Date Time Temp Pulse Resp B/P (MAP) Pulse Ox O2 Delivery O2 Flow Rate FiO2 04/01/20 06:56 98.7 75 16 136/80 (98) 99 Room Air Current Medications Current Medications Medications (Trade) Dose Ordered Sig/Sherie Route PRN Reason Start Time Stop Time Status Last Admin Dose Admin Acetaminophen (Tylenol Tab) 650 mg Q6HP PRN PO HEADACHE or DISCOMFORT 03/27/20 17:15 04/01/20 00:38 Al Hydrox/Mg Hydrox/Simethicone (Mylanta) 30 ml Q4HP PRN PO HEARTBURN/INDIGESTION 03/27/20 17:15 Aripiprazole (AbiLIFY) 2 mg QHS PO 03/29/20 21:00 03/31/20 20:40 Home Med (Med Rec Complete!) ASDIRECTED XX 03/27/20 06:00 03/27/20 05:54 DC Lorazepam (Ativan) 1 mg STAT STAT IV 03/26/20 21:37 03/26/20 21:38 DC 03/26/20 21:55 Lorazepam (Ativan) 1 mg STAT STAT IV 03/26/20 21:48 03/26/20 21:50 DC 03/26/20 21:56 Lorazepam (Ativan) 1 mg STAT STAT IV 03/27/20 04:04 03/27/20 04:07 DC 03/27/20 04:15 Lorazepam (Ativan) 2 mg Q10MP PRN IV AGITATION 03/26/20 22:00 03/27/20 04:05 DC 03/26/20 22:31 Magnesium Hydroxide (Milk Of Magnesia) 30 ml DAILYPRN PRN PO CONSTIPATION 03/27/20 17:15 Olanzapine (ZyPREXA ZYDIS) 5 mg BID PO 03/27/20 21:00 04/01/20 08:05 Olanzapine (ZyPREXA ZYDIS) 5 mg Q8HP PRN PO AGITATION 03/27/20 17:15 Patient Own Medication (Patient'S Own Med) Loryna 3MG-0.02MG 1 TABLET DAILY PO 03/30/20 09:00 04/01/20 08:05 Trazodone HCl (Desyrel) 50 mg QHSP PRN PO INSOMNIA 03/27/20 17:15 03/31/20 20:40 Allergies Coded Allergies: TAPE (Verified Allergy, Mild, bandaides rash, 03/12/20) azithromycin (Verified Allergy, Mild, RASH, 01/19/19) clarithromycin (Verified Allergy, Mild, rash, 03/12/20) Sulfa (Sulfonamide Antibiotics) (Verified Allergy, Unknown, rash, 03/26/20) MERRITT LENNON DO Apr 01, 2020 09:21
[2020-04-01] MEDS ORDERED: OLAN5TAB PO (11:22)
[2020-04-01] MEDS ORDERED: ABIL1TAB13 PO (11:22)
--- NOTE | 2020-04-01 11:23 | MHDSPDOC ---
[facility] Discharge Summary Discharge Summary DATE OF ADMISSION: Mar 27, 2020 at 17:11 DATE OF DISCHARGE: Apr 01, 2020 at 14:54 DISCHARGE DIAGNOSES: See Problem list below REASON FOR ADMISSION: 34-year-old woman admitted in a manic state CONSULTANTS INVOLVED:[ None (basic hospitalist screening)] TREATMENT AND PROGRESS ON THE UNIT : Medication changes: start on Zyprexa increased to total of 15 mg daily, with positive effects controlling her mood and bizarreness resulting her marco antonio well Behavior on unit: elated and bizarre at times, however, she resolved she became quite amenable Treatment attendance:, attended more she improved Notable issues on presentation: results without much incident State on discharge: [improved] DISCHARGE ASSESSMENT: The patient a 34 year old woman, with likely, bipolar disorder, presented to [facility], where they, treated with appropriate mood stabilizer and resolved without incident. Legal status considerations: The patient at the time of discharge did not meet criteria for involuntary admission/extension due to having a [normal] mental status exam, [fair] insight into the situation, They are engaged in the discharge process, as well as being friendly and amenable in behavioral control and havent been engaging in any observed concerning behavior or ideation recently. They decline voluntary extension/admission at this time and must be discharged in good armen, as Im unable to make a case for holding the patient against their will. They may have historical risk factors of admissions and other interactions with psychiatry however, those are not modifiable from a clinical perspective. The patient will need to be discharged in good armen. MENTAL STATUS EXAMINATION ON DISCHARGE: [General: Well dressed with good hygiene Speech: Spontaneous and fluid Thought processes: Linear and logical Thought content: Future orientated Abstract reasoning, and computation: Intact Description of associations: Intact Description of abnormal or psychotic thoughts:Denies any suicidal or homicidal ideation. Denies any auditory or visual hallucinations. Does not appear to be responding to internal stimuli. Does not appear to be endorsing any bizarre or paranoid ideation. Judgment: fair Insight: fair Orientation: Alert and orientated 3 Recent and remote memory: Intact Attention span and concentration: Intact Fund of knowledge: Adequate Mood: "okay" Affect: Euthymic with a full range] PLAN/FOLLOWUP ARRANGEMENTS: Follow up appointments made (PCP and MH in 5 days of D/C date) and safety plan completed. Safety Planning aspects completed prior to discharge [SAFE ACT reported on initial invol admission in ER] [Medication supplies limited to 7 days with 4 refills to prevent accumulation to OD] [RN reviewed crisis hotline information and other aspects to empower patient to access care in interim before next appointment.] The amount of time spent in the coordination of care for this patient was approximately 30 minutes. Vital Signs/I&Os Vital Signs Date Time Temp Pulse Resp B/P (MAP) Pulse Ox O2 Delivery O2 Flow Rate FiO2 04/01/20 06:56 98.7 75 16 136/80 (98) 99 Room Air Medications Scheduled Aripiprazole (Abilify) 2 Mg Tablet, 2 MG PO QHS for mood for 7 Days, #7 Ethinyl Estradiol/Drospirenone (Loryna 3 mg-0.02 mg Tablet) 1 Each Tablet, 1 TAB PO DAILY, (Reported) Lidocaine (Lidocaine) 5% Adh..patch, 1 PATCH TOP DAILY, (Reported) 12 ON, 12 OFF, APPLY TO AFFECTED AREA Olanzapine (Olanzapine) 5 Mg Tablet, 1 TAB PO BID for mood for 7 Days, #14 Scheduled PRN Cyclobenzaprine HCl (Cyclobenzaprine HCl) 10 Mg Tablet, 10 MG PO QPM PRN for MUSCLE SPASMS, (Reported) Ibuprofen (Ibuprofen) 800 Mg Tablet, 800 MG PO TID PRN for PAIN, (Reported) Allergies Coded Allergies: TAPE (Verified Allergy, Mild, bandaides rash, 03/12/20) azithromycin (Verified Allergy, Mild, RASH, 01/19/19) clarithromycin (Verified Allergy, Mild, rash, 03/12/20) Sulfa (Sulfonamide Antibiotics) (Verified Allergy, Unknown, rash, 03/26/20) Problems (1) Bipolar 1 disorder, manic, moderate Status: Resolved (2) Cannabis abuse Status: Chronic Plan / VTE VTE Prophylaxis Ordered?: MERRITT Alanis DO Apr 01, 2020 11:23
== END 2020-04-01 14:54 | disposition home or self-care (01) | DRG 753 ==
LOC: M ED 21:32 → M ED INP 03-27 17:11 → M PSY 03-27 18:45
PROVIDERS: ADMIT Psychiatry & Neurology Addiction Medicine; ATTEND Psychiatry & Neurology Addiction Medicine
DX: F31.2 Bipolar disorder, current episode manic severe with psychotic features (principal); F12.90 Cannabis use, unspecified, uncomplicated; Z79.899 Other long term (current) drug therapy; Z88.2 Allergy status to sulfonamides; Z88.8 Allergy status to other drugs, medicaments and biological substances; J45.909 Unspecified asthma, uncomplicated; N80.9 Endometriosis, unspecified

== ENCOUNTER → 2020-04-02 | Outpatient (CLI) | payer OTHER ==
[~2020-04-02] MED LIST changes: +ABIL1TAB13 PO; +IBUP1TAB7 PO; +LIDO5TD TOP; +LORY1TAB2 PO; +OLAN5TAB PO; +SERT-138 PO
--- NOTE | 2020-04-02 08:22 | REP ---
Clinical: Right-sided chest and rib pain. Technique: Axial noncontrast images from the thoracic inlet to the upper abdomen with coronal and sagittal re-formations. Findings: The bilateral lung nicholas are well-aerated and clear. No consolidation, significant nodule or mass lesion appreciated. No pleural effusion or pneumothorax. Tracheobronchial tree is patent. No obvious adenopathy. The mediastinum demonstrates relatively normal thoracic aorta, pulmonary vasculature and heart/pericardium. Surrounding musculoskeletal structures are intact. Impression: Normal noncontrast chest CT. Electronically Signed by Garcia Lamas MD 04/02/2020 08:14 A
== END ==
LOC: M RAD 07:53
PROVIDERS: ATTEND Physician Assistant
DX: R07.81 Pleurodynia (principal)

== ENCOUNTER → 2020-07-03 | Outpatient (CLI) | payer OTHER ==
[2020-07-03 14:18] LABS: BASO # 0.1 10^3/uL (0.0-0.2); BASO % 1.8 % (0.0-1.0); EOS # 0.1 10^3/uL (0.0-0.5); EOS % 1.4 % (0.0-3.0); HEMOGLOBIN 14.1 g/dl (12.0-15.5); LYMPH # 1.7 10^3/uL (1.5-5.0); LYMPH % 26.6 % (24.0-44.0); MEAN CORPUSCULAR HEMOGLOBIN 29.6 pg (27.0-33.0); MEAN CORPUSCULAR HGB CONC 33.6 g/dl (32.0-36.5); MEAN CORPUSCULAR VOLUME 88.2 fl (80.0-96.0); MONO # 0.4 10^3/uL (0.0-0.8); MONO % 6.8 % (0.0-5.0); NEUTROPHILS % 63.2 % (36.0-66.0); PLATELET COUNT, AUTOMATED 276 10^3/uL (150-450); RED BLOOD COUNT 4.76 10^6/uL (4.00-5.40); WHITE BLOOD COUNT 6.3 10^3/uL (4.0-10.0)
[2020-07-03 14:58] LABS: ALBUMIN 3.7 GM/DL (3.2-5.2); ALT/SGPT 14 U/L (12-78); BILIRUBIN,TOTAL 0.3 MG/DL (0.2-1.0); BLOOD UREA NITROGEN 8 MG/DL (7-18); CALCIUM LEVEL 9.4 MG/DL (8.5-10.1); CARBON DIOXIDE LEVEL 28 MEQ/L (21-32); CHLORIDE LEVEL 106 MEQ/L (98-107); FREE T4 1.14 NG/DL (0.76-1.46); GLOMERULAR FILTRATION RATE > 60.0 (>60); GLUCOSE, FASTING 89 MG/DL (70-100); LITHIUM LEVEL 0.67 MEQ/L (0.60-1.20); POTASSIUM SERUM 4.5 MEQ/L (3.5-5.1); SODIUM LEVEL 140 MEQ/L (136-145); TOTAL PROTEIN 6.8 GM/DL (6.4-8.2)
== END ==
LOC: M PLALAB 09:15
PROVIDERS: ATTEND Physician Assistant
DX: Z51.81 Encounter for therapeutic drug level monitoring (principal); Z79.899 Other long term (current) drug therapy; F31.9 Bipolar disorder, unspecified

== ENCOUNTER → 2020-07-17 | Outpatient (CLI) | payer OTHER ==
[2020-07-17 14:05] LABS: HEMATOCRIT 43.1 % (36.0-47.0); HEMOGLOBIN 14.4 g/dl (12.0-15.5); MEAN CORPUSCULAR HEMOGLOBIN 29.6 pg (27.0-33.0); MEAN CORPUSCULAR HGB CONC 33.4 g/dl (32.0-36.5); MEAN CORPUSCULAR VOLUME 88.7 fl (80.0-96.0); PLATELET COUNT, AUTOMATED 318 10^3/uL (150-450); RED BLOOD COUNT 4.86 10^6/uL (4.00-5.40); WHITE BLOOD COUNT 6.6 10^3/uL (4.0-10.0)
[2020-07-17 14:33] LABS: ALBUMIN 3.9 GM/DL (3.2-5.2); ALT/SGPT 15 U/L (12-78); BILIRUBIN,DIRECT 0.1 MG/DL (0.0-0.2); BILIRUBIN,TOTAL 0.5 MG/DL (0.2-1.0); BLOOD UREA NITROGEN 7 MG/DL (7-18); CALCIUM LEVEL 9.7 MG/DL (8.5-10.1); CARBON DIOXIDE LEVEL 29 MEQ/L (21-32); CHLORIDE LEVEL 106 MEQ/L (98-107); CHOLESTEROL LEVEL 215 MG/DL (<200); CHOLESTEROL RISK RATIO 2.828 (<5); CREATININE FOR GFR 0.85 MG/DL (0.55-1.30); GLOMERULAR FILTRATION RATE > 60.0 (>60); GLUCOSE, FASTING 89 MG/DL (70-100); HCG, SERUM QUANTITATIVE < 1.0 MIU/ML; HDL CHOLESTEROL 76 MG/DL (>40); LDL CHOLESTEROL 102 MG/DL (<100); LITHIUM LEVEL 0.39 MEQ/L (0.60-1.20); NON-HDL-C 139 MG/DL; POTASSIUM SERUM 4.3 MEQ/L (3.5-5.1); SODIUM LEVEL 140 MEQ/L (136-145); TOTAL PROTEIN 7.3 GM/DL (6.4-8.2); TRIGLYCERIDES LEVEL 186 MG/DL (<150)
== END ==
LOC: M PLALAB 09:16
PROVIDERS: ATTEND Psychiatry & Neurology Psychiatry
DX: F31.31 Bipolar disorder, current episode depressed, mild (principal); F12.20 Cannabis dependence, uncomplicated

== ENCOUNTER → 2021-12-14 | Outpatient (CLI) | payer OTHER ==
[~2021-12-14] MED LIST changes: +OLAN1TAB16 PO; -OLAN5TAB PO
[2021-12-14 13:15] LABS: BASO # 0.1 10^3/uL (0.0-0.2); BASO % 0.9 % (0.0-1.0); EOS # 0.1 10^3/uL (0.0-0.5); EOS % 1.4 % (0.0-3.0); HEMATOCRIT 40.8 % (36.0-47.0); LYMPH # 2.3 10^3/uL (1.5-5.0); MEAN CORPUSCULAR HEMOGLOBIN 29.4 pg (27.0-33.0); MEAN CORPUSCULAR HGB CONC 34.3 g/dl (32.0-36.5); MEAN CORPUSCULAR VOLUME 85.5 fl (80.0-96.0); MONO # 0.5 10^3/uL (0.0-0.8); MONO % 5.9 % (2.0-8.0); NEUTROPHILS # 4.9 10^3/uL (1.5-8.5); NEUTROPHILS % 62.4 % (36.0-66.0); PLATELET COUNT, AUTOMATED 275 10^3/uL (150-450); RED BLOOD COUNT 4.77 10^6/uL (4.00-5.40); WHITE BLOOD COUNT 7.8 10^3/uL (4.0-10.0)
[2021-12-14 17:13] LABS: ALBUMIN 3.9 GM/DL (3.2-5.2); ALT/SGPT 20 U/L (12-78); BILIRUBIN,TOTAL 0.2 MG/DL (0.2-1.0); BLOOD UREA NITROGEN 7 MG/DL (7-18); CALCIUM LEVEL 9.4 MG/DL (8.5-10.1); CARBON DIOXIDE LEVEL 28 MEQ/L (21-32); CHLORIDE LEVEL 106 MEQ/L (98-107); FOLATE > 24.0 NG/ML; FREE T4 1.11 NG/DL (0.76-1.46); GLOMERULAR FILTRATION RATE > 60.0 (>60); GLUCOSE, FASTING 94 MG/DL (70-100); SODIUM LEVEL 139 MEQ/L (136-145); TOTAL 25(OH) VITAMIN D 29.9 NG/ML (30.0-100.0); VITAMIN B12 LEVEL 690 PG/ML
== END ==
LOC: M PLALAB 10:03
PROVIDERS: ATTEND Physician Assistant
DX: R51.9 Headache, unspecified (principal); R41.3 Other amnesia

== ENCOUNTER → 2021-12-25 | Outpatient (REF) | payer OTHER ==
[2021-12-25 21:53] LABS: APPEARANCE, URINE HAZY (CLEAR); BACTERIA, URINE AUTO 1+ (NEGATIVE); BILIRUBIN, URINE AUTO NEGATIVE (NEGATIVE); BLOOD, URINE BLOOD 3+ (NEGATIVE); COLOR, URINE YELLOW (YELLOW); GLUCOSE, URINE (UA) AUTO NEGATIVE (NEGATIVE); KETONE, URINE AUTO NEGATIVE (NEGATIVE); LEUKOCYTE ESTERASE, URINE AUTO TRACE (NEGATIVE); MUCUS, URINE SMALL (NEGATIVE); NITRITE, URINE AUTO NEGATIVE (NEGATIVE); PROTEIN, URINE AUTO NEGATIVE (NEGATIVE); RBC, URINE AUTO 7 /HPF (0-3); SPECIFIC GRAVITY URINE AUTO 1.005 (1.002-1.035); SQUAMOUS EPITHELIAL CELL UR AU 0 /HPF (0-6); UROBILINOGEN, URINE AUTO 0.2 mg/dL (0.0-2.0); WBC, URINE AUTO 9 /HPF (0-3)
== END ==
LOC: M LAB REF 21:24
PROVIDERS: ATTEND Physician Assistant
DX: N39.0 Urinary tract infection, site not specified (principal)

== ENCOUNTER → 2022-01-01 | Outpatient (CLI) | payer OTHER ==
[2022-01-01 15:07] LABS: BASO # 0.1 10^3/uL (0.0-0.2); BASO % 0.9 % (0.0-1.0); EOS # 0.1 10^3/uL (0.0-0.5); EOS % 1.8 % (0.0-3.0); HEMATOCRIT 41.7 % (36.0-47.0); HEMOGLOBIN 14.6 g/dl (12.0-15.5); LYMPH # 2.7 10^3/uL (1.5-5.0); LYMPH % 34.2 % (24.0-44.0); MEAN CORPUSCULAR HEMOGLOBIN 29.3 pg (27.0-33.0); MEAN CORPUSCULAR VOLUME 83.7 fl (80.0-96.0); MONO # 0.9 10^3/uL (0.0-0.8); NEUTROPHILS # 4.2 10^3/uL (1.5-8.5); NEUTROPHILS % 51.8 % (36.0-66.0); PLATELET COUNT, AUTOMATED 327 10^3/uL (150-450); RED BLOOD COUNT 4.98 10^6/uL (4.00-5.40)
[2022-01-01 15:35] LABS: ALBUMIN 4.4 GM/DL (3.2-5.2); ALT/SGPT 28 U/L (12-78); BILIRUBIN,TOTAL 0.5 MG/DL (0.2-1.0); BLOOD UREA NITROGEN 7 MG/DL (7-18); CALCIUM LEVEL 10.2 MG/DL (8.5-10.1); CARBON DIOXIDE LEVEL 31 MEQ/L (21-32); CHLORIDE LEVEL 105 MEQ/L (98-107); CREATININE FOR GFR 0.74 MG/DL (0.55-1.30); GLOMERULAR FILTRATION RATE > 60.0 (>60); GLUCOSE, FASTING 86 MG/DL (70-100); POTASSIUM SERUM 4.5 MEQ/L (3.5-5.1); SODIUM LEVEL 141 MEQ/L (136-145); TOTAL PROTEIN 7.4 GM/DL (6.4-8.2)
[2022-01-01 18:08] LABS: APPEARANCE, URINE CLEAR (CLEAR); BACTERIA, URINE AUTO NEGATIVE (NEGATIVE); BILIRUBIN, URINE AUTO NEGATIVE (NEGATIVE); BLOOD, URINE BLOOD 2+ (NEGATIVE); COLOR, URINE STRAW (YELLOW); GLUCOSE, URINE (UA) AUTO NEGATIVE (NEGATIVE); KETONE, URINE AUTO NEGATIVE (NEGATIVE); LEUKOCYTE ESTERASE, URINE AUTO NEGATIVE (NEGATIVE); MUCUS, URINE SMALL (NEGATIVE); NITRITE, URINE AUTO NEGATIVE (NEGATIVE); PROTEIN, URINE AUTO NEGATIVE (NEGATIVE); RBC, URINE AUTO 2 /HPF (0-3); SPECIFIC GRAVITY URINE AUTO 1.003 (1.002-1.035); SQUAMOUS EPITHELIAL CELL UR AU 0 /HPF (0-6); UROBILINOGEN, URINE AUTO 0.2 mg/dL (0.0-2.0); WBC, URINE AUTO 0 /HPF (0-3)
== END ==
LOC: M PLALAB 12:40
PROVIDERS: ATTEND Physician Assistant
DX: N92.6 Irregular menstruation, unspecified (principal); R39.9 Unspecified symptoms and signs involving the genitourinary system; R31.9 Hematuria, unspecified; R10.9 Unspecified abdominal pain

== ENCOUNTER → 2022-01-01 | Outpatient (CLI) | payer OTHER | LOC: M RAD 14:07 | PROVIDERS: ATTEND Physician Assistant | DX: R39.9 Unspecified symptoms and signs involving the genitourinary system (principal); R31.9 Hematuria, unspecified; R10.9 Unspecified abdominal pain ==

== ENCOUNTER 2022-01-28 19:18 | Emergency (ER) | payer OTHER ==
[~2022-01-28] VITALS: Ht 170.2 cm; Wt 72.7 kg
[2022-01-28] MEDS ORDERED: SERO1TAB3 PO (19:24)
[2022-01-28] MEDS ORDERED: GABA-282 PO (19:24)
[2022-01-28] MEDS ORDERED: NORCO, ANEXSIA 5/325MG TABLET (HYDROcodone/ACETAMINOPHEN) PO ONE (23:30)
[2022-01-29] MEDS ORDERED: NORCO 5/325MG TABLET (BULK FOR ED) PO ONE (00:50)
[2022-01-29 00:54] VITALS: BP 119/83
== END 2022-01-29 00:58 | disposition home or self-care (01) ==
LOC: M ED 19:18
DX: S39.92XA Unspecified injury of lower back, initial encounter (principal); S79.912A Unspecified injury of left hip, initial encounter; W19.XXXA Unspecified fall, initial encounter; Y92.9 Unspecified place or not applicable; Y93.9 Activity, unspecified; Y99.9 Unspecified external cause status; M54.30 Sciatica, unspecified side; J45.909 Unspecified asthma, uncomplicated; F41.9 Anxiety disorder, unspecified; F32.9 Major depressive disorder, single episode, unspecified; M79.7 Fibromyalgia; N80.9 Endometriosis, unspecified; D25.9 Leiomyoma of uterus, unspecified; Z88.2 Allergy status to sulfonamides; Z91.89 Other specified personal risk factors, not elsewhere classified; Z88.1 Allergy status to other antibiotic agents

== ENCOUNTER → 2022-02-02 | Outpatient (CLI) | payer OTHER ==
[~2022-02-02] MED LIST changes: +GABA-282 PO; +SERO1TAB3 PO
== END ==
LOC: M PLAIMG 10:31
PROVIDERS: ATTEND Orthopaedic Surgery
DX: S39.012A Strain of muscle, fascia and tendon of lower back, initial encounter (principal); M54.50 Low back pain, unspecified; X58.XXXA Exposure to other specified factors, initial encounter; Y92.9 Unspecified place or not applicable; Y93.9 Activity, unspecified; Y99.9 Unspecified external cause status

== ENCOUNTER → 2022-03-08 | Outpatient (REF) | payer OTHER | LOC: M SFHCPLAZ 16:58 | PROVIDERS: ATTEND Physician Assistant | DX: R30.0 Dysuria (principal) ==

== ENCOUNTER 2022-03-17 16:06 | Emergency (ER) | payer OTHER ==
[~2022-03-17] VITALS: Ht 170.2 cm; Wt 73.5 kg
[2022-03-17] MEDS ORDERED: LORY1TAB2 (16:14)
[2022-03-17] MEDS ORDERED: ALBUTEROL 90 MCG/ACT 8GM HFA INHALER INH ONE (17:05)
[2022-03-17] MEDS ORDERED: VENTAER INH (19:02)
[2022-03-17 19:20] VITALS: BP 113/77
== END 2022-03-17 19:25 | disposition home or self-care (01) ==
LOC: M ED 16:06
DX: J45.901 Unspecified asthma with (acute) exacerbation (principal); J09.X2 Influenza due to identified novel influenza A virus with other respiratory manifestations; M79.7 Fibromyalgia; F41.9 Anxiety disorder, unspecified; F32.9 Major depressive disorder, single episode, unspecified; F12.10 Cannabis abuse, uncomplicated; Z79.899 Other long term (current) drug therapy; Z88.2 Allergy status to sulfonamides; Z88.1 Allergy status to other antibiotic agents; Z88.8 Allergy status to other drugs, medicaments and biological substances; Z91.89 Other specified personal risk factors, not elsewhere classified

== ENCOUNTER → 2022-03-29 | Outpatient (CLI) | payer OTHER ==
[~2022-03-29] MED LIST changes: +LORY1TAB2; +VENTAER INH
[2022-03-29 11:02] LABS: APPEARANCE, URINE HAZY (CLEAR); BACTERIA, URINE AUTO NEGATIVE (NEGATIVE); BILIRUBIN, URINE AUTO NEGATIVE (NEGATIVE); BLOOD, URINE BLOOD 2+ (NEGATIVE); COLOR, URINE YELLOW (YELLOW); GLUCOSE, URINE (UA) AUTO NEGATIVE (NEGATIVE); KETONE, URINE AUTO NEGATIVE (NEGATIVE); LEUKOCYTE ESTERASE, URINE AUTO NEGATIVE (NEGATIVE); MUCUS, URINE SMALL (NEGATIVE); NITRITE, URINE AUTO NEGATIVE (NEGATIVE); PROTEIN, URINE AUTO NEGATIVE (NEGATIVE); RBC, URINE AUTO 1 /HPF (0-3); SPECIFIC GRAVITY URINE AUTO 1.017 (1.002-1.035); SQUAMOUS EPITHELIAL CELL UR AU 0 /HPF (0-6); UROBILINOGEN, URINE AUTO 0.2 mg/dL (0.0-2.0); WBC, URINE AUTO 1 /HPF (0-3)
== END ==
LOC: M PLALAB 08:46
PROVIDERS: ATTEND Physician Assistant
DX: R31.9 Hematuria, unspecified (principal)

== ENCOUNTER → 2022-04-16 | Outpatient (CLI) | payer OTHER ==
[~2022-04-16] MED LIST changes: +ISOVUE-370 76% 100ML VIAL As Ordered ONE
== END ==
LOC: M RAD 14:20
PROVIDERS: ATTEND Physician Assistant
DX: R31.29 Other microscopic hematuria (principal); N80.9 Endometriosis, unspecified

== ENCOUNTER → 2022-04-29 | Outpatient (CLI) | payer OTHER ==
[~2022-04-29] MED LIST changes: -ISOVUE-370 76% 100ML VIAL As Ordered ONE
== END ==
LOC: M WHC 10:16
PROVIDERS: ATTEND Obstetrics & Gynecology
DX: D25.9 Leiomyoma of uterus, unspecified (principal); N85.8 Other specified noninflammatory disorders of uterus

== ENCOUNTER → 2022-04-29 | Outpatient (REF) | payer OTHER ==
[2022-04-30 16:08] LABS: EBV VIRAL CAPSID AG IgM <36.0 U/mL (0.0-35.9)
== END ==
LOC: M SFHCRHEU 09:47
PROVIDERS: ATTEND Internal Medicine
DX: M25.50 Pain in unspecified joint (principal); R53.83 Other fatigue

== ENCOUNTER → 2022-06-02 | Outpatient (REF) | payer OTHER | LOC: M PLALAB 16:36 | PROVIDERS: ATTEND Nurse Practitioner Family | DX: Z12.4 Encounter for screening for malignant neoplasm of cervix (principal) ==

== ENCOUNTER → 2022-07-08 | Outpatient (REF) | payer OTHER ==
[2022-07-08 16:38] LABS: BASO # 0.1 10^3/uL (0.0-0.2); BASO % 1.2 % (0.0-1.0); EOS # 0.1 10^3/uL (0.0-0.5); EOS % 1.1 % (0.0-3.0); HEMATOCRIT 42.1 % (36.0-47.0); HEMOGLOBIN 14.6 g/dl (12.0-15.5); LYMPH # 2.4 10^3/uL (1.5-5.0); LYMPH % 32.8 % (24.0-44.0); MEAN CORPUSCULAR HEMOGLOBIN 29.9 pg (27.0-33.0); MEAN CORPUSCULAR HGB CONC 34.7 g/dl (32.0-36.5); MEAN CORPUSCULAR VOLUME 86.1 fl (80.0-96.0); MONO # 0.5 10^3/uL (0.0-0.8); MONO % 7.3 % (2.0-8.0); NEUTROPHILS # 4.2 10^3/uL (1.5-8.5); NEUTROPHILS % 57.5 % (36.0-66.0); PLATELET COUNT, AUTOMATED 335 10^3/uL (150-450); RED BLOOD COUNT 4.89 10^6/uL (4.00-5.40); WHITE BLOOD COUNT 7.3 10^3/uL (4.0-10.0)
[2022-07-08 16:42] LABS: APPEARANCE, URINE MANUAL CLEAR (CLEAR); BILIRUBIN, URINE MANUAL NEGATIVE (NEGATIVE); COLOR, URINE MANUAL LT YELLOW (YELLOW); GLUCOSE, URINE (UA) MANUAL NEGATIVE (NEGATIVE); KETONE, URINE MANUAL NEGATIVE (NEGATIVE); LEUKOCYTE ESTERASE, URINE MAN NEGATIVE (NEGATIVE); NITRITE, URINE MANUAL NEGATIVE (NEGATIVE); PROTEIN, URINE MANUAL NEGATIVE (NEGATIVE); SPECIFIC GRAVITY,URINE MANUAL 1.005 (1.002-1.035); UROBILINOGEN, URINE MANUAL NORMAL (NORMAL)
[2022-07-08 16:43] LABS: BLOOD URINE MANUAL NEGATIVE (NEGATIVE)
[2022-07-08 17:11] LABS: CREATININE,RANDOM URINE 23.8 MG/DL; TOTAL PROTEIN,RANDOM URINE < 5.0 MG/DL (0.0-12.0)
[2022-07-08 17:49] LABS: TOTAL 25(OH) VITAMIN D 34.4 NG/ML (30.0-100.0)
[2022-07-10 09:44] LABS: DRVV SCREEN 35.8 SEC
== END ==
LOC: M SFHCRHEU 11:44
PROVIDERS: ATTEND Internal Medicine
DX: R53.83 Other fatigue (principal); E55.9 Vitamin D deficiency, unspecified; I73.00 Raynaud's syndrome without gangrene

== ENCOUNTER → 2022-08-06 | Outpatient (REF) | payer OTHER | LOC: M SFHCRHEU 11:07 | PROVIDERS: ATTEND Internal Medicine | DX: R79.89 Other specified abnormal findings of blood chemistry (principal) ==

== ENCOUNTER → 2022-09-01 | Outpatient (REF) | payer OTHER | LOC: M LAB REF 16:13 | PROVIDERS: ATTEND Physician Assistant | DX: B34.9 Viral infection, unspecified (principal) ==

== ENCOUNTER → 2022-11-30 | Outpatient (CLI) | payer OTHER ==
[2022-11-30 14:38] LABS: BASO # 0.1 10^3/uL (0.0-0.2); BASO % 1.6 % (0.0-1.0); EOS # 0.1 10^3/uL (0.0-0.5); HEMATOCRIT 38.7 % (36.0-47.0); HEMOGLOBIN 12.9 g/dl (12.0-15.5); LYMPH # 2.2 10^3/uL (1.5-5.0); MEAN CORPUSCULAR HEMOGLOBIN 28.6 pg (27.0-33.0); MEAN CORPUSCULAR HGB CONC 33.3 g/dl (32.0-36.5); MEAN CORPUSCULAR VOLUME 85.8 fl (80.0-96.0); MONO # 0.4 10^3/uL (0.0-0.8); MONO % 7.4 % (2.0-8.0); NEUTROPHILS # 2.7 10^3/uL (1.5-8.5); NEUTROPHILS % 48.8 % (36.0-66.0); PLATELET COUNT, AUTOMATED 288 10^3/uL (150-450); RED BLOOD COUNT 4.51 10^6/uL (4.00-5.40); WHITE BLOOD COUNT 5.6 10^3/uL (4.0-10.0)
[2022-11-30 15:02] LABS: CORTISOL AM 14.6 UG/DL (4.3-22.4)
[2022-11-30 15:04] LABS: THYROID STIMULATING HORMONE 1.608 uIU/ML (0.55-4.78)
[2022-11-30 15:07] LABS: LUTEINIZING HORMONE 5.5 mIU/ML
[2022-11-30 15:08] LABS: FREE T4 1.15 NG/DL (0.89-1.76)
[2022-11-30 15:09] LABS: ALBUMIN 3.7 G/DL (3.2-5.2); ALKALINE PHOSPHATASE 60 U/L (46-116); ALT/SGPT 14 U/L (7.0-40); AST/SGOT < 8 U/L (<34); BILIRUBIN,TOTAL 0.3 MG/DL (0.3-1.2); BLOOD UREA NITROGEN 10 MG/DL (9-23); CARBON DIOXIDE LEVEL 28 MMOL/L (20-31); CHLORIDE LEVEL 108 MMOL/L (98-107); CHOLESTEROL LEVEL 191 MG/DL (<200); CHOLESTEROL RISK RATIO 2.52 (<5); CREATININE FOR GFR 0.76 MG/DL (0.55-1.30); GLOMERULAR FILTRATION RATE > 60.0 (>60); GLUCOSE, FASTING 81 MG/DL (60-100); HDL CHOLESTEROL 75.7 MG/DL (>40); LDL CHOLESTEROL 91.5 MG/DL (<100); NON-HDL-C 115 MG/DL; SODIUM LEVEL 140 MMOL/L (136-145); TOTAL PROTEIN 6.6 G/DL (5.7-8.2); TRIGLYCERIDES LEVEL 119 MG/DL (<150)
== END ==
LOC: M PLALAB 09:05
PROVIDERS: ATTEND Physician Assistant
DX: R23.2 Flushing (principal); M79.7 Fibromyalgia

== ENCOUNTER → 2023-02-01 | Outpatient (REF) | payer OTHER ==
[2023-02-01 17:00] LABS: C REACTIVE PROTEIN QUANTITATIV 1.6 MG/DL (<1.0)
[2023-02-01 17:01] LABS: COMPLEMENT C3 178.2 MG/DL (84.0-160.0); COMPLEMENT C4 43.2 MG/DL (12-36)
[2023-02-04 12:08] LABS: ANTI-HISTONE ANTIBODIES 1.3 Units (0.0-0.9); COMPLEMENT TOTAL (CH50) > 60 U/mL (>41)
== END ==
LOC: M SFHCRHEU 10:50
PROVIDERS: ATTEND Internal Medicine
DX: R79.89 Other specified abnormal findings of blood chemistry (principal); R76.8 Other specified abnormal immunological findings in serum; E55.9 Vitamin D deficiency, unspecified; M25.50 Pain in unspecified joint

== ENCOUNTER → 2023-06-09 | Outpatient (CLI) | payer OTHER ==
[2023-06-09 13:26] LABS: BASO # 0.1 10^3/uL (0.0-0.2); EOS # 0.1 10^3/uL (0.0-0.5); EOS % 0.8 % (0.0-3.0); HEMATOCRIT 39.2 % (36.0-47.0); HEMOGLOBIN 13.4 g/dl (12.0-15.5); LYMPH # 2.5 10^3/uL (1.5-5.0); LYMPH % 29.4 % (24.0-44.0); MEAN CORPUSCULAR HGB CONC 34.2 g/dl (32.0-36.5); MEAN CORPUSCULAR VOLUME 84.8 fl (80.0-96.0); MONO # 0.6 10^3/uL (0.0-0.8); MONO % 7.1 % (2.0-8.0); NEUTROPHILS # 5.3 10^3/uL (1.5-8.5); NEUTROPHILS % 61.5 % (36.0-66.0); PLATELET COUNT, AUTOMATED 303 10^3/uL (150-450); RED BLOOD COUNT 4.62 10^6/uL (4.00-5.40); WHITE BLOOD COUNT 8.6 10^3/uL (4.0-10.0)
[2023-06-09 13:48] LABS: INR 0.99; PARTIAL THROMBOPLASTIN TIME 27.7 SECONDS (24.8-34.2); PROTHROMBIN TIME 12.8 SECONDS (12.5-14.5)
== END ==
LOC: M PLALAB 11:16
PROVIDERS: ATTEND Physician Assistant
DX: R23.3 Spontaneous ecchymoses (principal)

== ENCOUNTER → 2023-07-19 | Outpatient (REF) | payer BC, OTHER | LOC: M SFHCWAGY 17:33 | PROVIDERS: ATTEND Obstetrics & Gynecology | DX: Z12.4 Encounter for screening for malignant neoplasm of cervix (principal) | CPT/HCPCS: 87624; G0123 ==

== ENCOUNTER → 2023-07-26 | Outpatient (CLI) | payer BC | LOC: M WHC 07:41 | PROVIDERS: ATTEND Obstetrics & Gynecology | DX: R10.2 Pelvic and perineal pain (principal); N88.8 Other specified noninflammatory disorders of cervix uteri; D25.2 Subserosal leiomyoma of uterus ==

== ENCOUNTER → 2023-11-25 | Outpatient (CLI) | payer BC, OTHER ==
[2023-11-25 18:23] LABS: BASO # 0.1 10^3/uL (0.0-0.2); BASO % 0.7 % (0.0-1.0); EOS # 0.1 10^3/uL (0.0-0.5); EOS % 0.6 % (0.0-3.0); HEMATOCRIT 38.7 % (36.0-47.0); HEMOGLOBIN 13.2 g/dl (12.0-15.5); LYMPH # 2.9 10^3/uL (1.5-5.0); LYMPH % 25.5 % (24.0-44.0); MEAN CORPUSCULAR HEMOGLOBIN 29.2 pg (27.0-33.0); MEAN CORPUSCULAR HGB CONC 34.1 g/dl (32.0-36.5); MEAN CORPUSCULAR VOLUME 85.6 fl (80.0-96.0); MONO # 0.6 10^3/uL (0.0-0.8); MONO % 5.5 % (2.0-8.0); NEUTROPHILS # 7.6 10^3/uL (1.5-8.5); NEUTROPHILS % 67.3 % (36.0-66.0); PLATELET COUNT, AUTOMATED 292 10^3/uL (150-450); RED BLOOD COUNT 4.52 10^6/uL (4.00-5.40); WHITE BLOOD COUNT 11.4 10^3/uL (4.0-10.0)
[2023-11-25 18:37] LABS: LIPASE 39 U/L (12-53)
[2023-11-25 18:39] LABS: ALBUMIN 3.9 G/DL (3.2-5.2); ALKALINE PHOSPHATASE 58 U/L (46-116); ALT/SGPT 12 U/L (7.0-40); AST/SGOT 11 U/L (<34); BILIRUBIN,TOTAL 0.4 MG/DL (0.3-1.2); BLOOD UREA NITROGEN 7 MG/DL (9-23); CALCIUM LEVEL 9.4 MG/DL (8.5-10.1); CARBON DIOXIDE LEVEL 24 MMOL/L (20-31); CHLORIDE LEVEL 104 MMOL/L (98-107); CREATININE FOR GFR 0.72 MG/DL (0.55-1.30); GLOMERULAR FILTRATION RATE > 60.0 (>60); GLUCOSE, FASTING 73 MG/DL (60-100); POTASSIUM SERUM 3.8 MMOL/L (3.5-5.1); SODIUM LEVEL 137 MMOL/L (136-145)
[2023-11-25 18:43] LABS: ERYTHROCYTE SEDIMENTATION RATE 12 mm/hr (0-20)
== END ==
LOC: M PLAIMG 16:00
PROVIDERS: ATTEND Physician Assistant
DX: R10.84 Generalized abdominal pain (principal); R19.8 Other specified symptoms and signs involving the digestive system and abdomen

== ENCOUNTER → 2024-01-31 | Outpatient (REF) | payer BC ==
[~2024-01-31] MED LIST changes: -KLON1TAB PO; +KLON1TAB13 PO
== END ==
LOC: M SFHCRHEU 11:24
PROVIDERS: ATTEND Internal Medicine
DX: E55.9 Vitamin D deficiency, unspecified (principal); R76.8 Other specified abnormal immunological findings in serum; R79.89 Other specified abnormal findings of blood chemistry

== ENCOUNTER 2024-02-29 10:28 | Day surgery (SDC) | payer BC ==
[~2024-02-29] VITALS: Ht 170.2 cm; Wt 75.2 kg
[~2024-02-29 10:28] MED LIST changes: -LORY1TAB2
[2024-02-29] MEDS: NS 1,000 ML IV ONE (11:27)
[2024-02-29] MEDS ORDERED: LIDOCAINE 2% 100MG/5ML SDV (FOR ANES.) As Ordered ONE (12:41)
[2024-02-29] MEDS ORDERED: fentaNYL 100 MCG/2 ML INJECTION As Ordered ONE (12:41)
[2024-02-29] MEDS ORDERED: propofoL 200 MG/20 ML VIAL As Ordered ONE (12:41)
[2024-02-29 13:22] VITALS: TEMP 98.6
[2024-02-29 13:45] VITALS: BP 92/55; O2SAT 100
== END 2024-02-29 13:50 | disposition home or self-care (01) ==
LOC: M OPP 10:28
PROVIDERS: ATTEND Surgery
DX: R10.30 Lower abdominal pain, unspecified (principal); R10.13 Epigastric pain; K30 Functional dyspepsia; J45.909 Unspecified asthma, uncomplicated; Z79.899 Other long term (current) drug therapy; Z87.891 Personal history of nicotine dependence; Z88.2 Allergy status to sulfonamides; Z88.1 Allergy status to other antibiotic agents
CPT/HCPCS: 43239; 45378; 88305; J3010

== ENCOUNTER → 2025-06-10 | Outpatient (REF) | payer BC ==
[~2025-06-10] MED LIST changes: +GABA-1172 PO; -GABA-282 PO; +LIDO1ADH93 TOP; -LIDO5DIS41 TOP
[2025-06-10 15:44] LABS: BASO # 0.1 10^3/uL (0.0-0.2); BASO % 1.2 % (0.0-1.0); EOS # 0.1 10^3/uL (0.0-0.5); EOS % 2.0 % (0.0-3.0); LYMPH # 2.3 10^3/uL (1.5-5.0); LYMPH % 35.0 % (24.0-44.0); MONO # 0.5 10^3/uL (0.0-0.8); MONO % 6.9 % (2.0-8.0); NEUTROPHILS # 3.6 10^3/uL (1.5-8.5); NEUTROPHILS % 54.7 % (36.0-66.0); PLATELET COUNT, AUTOMATED 307 10^3/uL (150-450)
[2025-06-10 15:55] LABS: ERYTHROCYTE SEDIMENTATION RATE 10 mm/hr (0-20)
[2025-06-10 15:58] LABS: TOTAL PROTEIN,RANDOM URINE 9.4 MG/DL (0.0-14.0)
[2025-06-10 16:02] LABS: APPEARANCE, URINE TURBID (CLEAR); BACTERIA, URINE AUTO 1+ (NEGATIVE); BILIRUBIN, URINE AUTO NEGATIVE (NEGATIVE); BLOOD, URINE BLOOD 1+ (NEGATIVE); GLUCOSE, URINE (UA) AUTO NEGATIVE (NEGATIVE); KETONE, URINE AUTO NEGATIVE (NEGATIVE); LEUKOCYTE ESTERASE, URINE AUTO 1+ (NEGATIVE); MUCUS, URINE MODERATE (NEGATIVE); NITRITE, URINE AUTO NEGATIVE (NEGATIVE); PROTEIN, URINE AUTO NEGATIVE (NEGATIVE); RBC, URINE AUTO 1 /HPF (0-3); SPECIFIC GRAVITY URINE AUTO 1.021 (1.002-1.035); SQUAMOUS EPITHELIAL CELL UR AU 3 /HPF (0-6); UROBILINOGEN, URINE AUTO 0.2 mg/dL (0.0-2.0); WBC, URINE AUTO 6 /HPF (0-3)
[2025-06-10 16:08] LABS: ALT/SGPT 16 U/L (7.0-40); AST/SGOT 17 U/L (<34); C REACTIVE PROTEIN QUANTITATIV < 0.50 MG/DL (<1.0); CALCIUM LEVEL 9.4 MG/DL (8.5-10.1); CARBON DIOXIDE LEVEL 29 MMOL/L (20-31); CHLORIDE LEVEL 103 MMOL/L (98-107); COMPLEMENT C4 36.4 MG/DL (12-36); CREATININE FOR GFR 0.66 MG/DL (0.55-1.30); GLOMERULAR FILTRATION RATE > 90.0 (>60); POTASSIUM SERUM 3.8 MMOL/L (3.5-5.1); SODIUM LEVEL 143 MMOL/L (136-145)
[2025-06-14 07:26] LABS: PTT-LA 34 sec (<=40)
[2025-06-14 15:27] LABS: COMPLEMENT TOTAL (CH50) 58 U/mL (31-60)
== END ==
LOC: M SFHCRHEU 09:49
PROVIDERS: ATTEND Internal Medicine
DX: M25.40 Effusion, unspecified joint (principal)

== ENCOUNTER → 2025-06-15 | Outpatient (REF) | payer BC ==
[2025-06-15 18:05] LABS: APPEARANCE, URINE CLEAR (CLEAR); BACTERIA, URINE AUTO 1+ (NEGATIVE); BILIRUBIN, URINE AUTO NEGATIVE (NEGATIVE); BLOOD, URINE BLOOD 1+ (NEGATIVE); GLUCOSE, URINE (UA) AUTO NEGATIVE (NEGATIVE); KETONE, URINE AUTO TRACE mg/dL (NEGATIVE); LEUKOCYTE ESTERASE, URINE AUTO NEGATIVE (NEGATIVE); MUCUS, URINE SMALL (NEGATIVE); NITRITE, URINE AUTO NEGATIVE (NEGATIVE); PROTEIN, URINE AUTO NEGATIVE (NEGATIVE); RBC, URINE AUTO 2 /HPF (0-3); SPECIFIC GRAVITY URINE AUTO 1.017 (1.002-1.035); SQUAMOUS EPITHELIAL CELL UR AU 2 /HPF (0-6); UROBILINOGEN, URINE AUTO 0.2 mg/dL (0.0-2.0); WBC, URINE AUTO 1 /HPF (0-3)
== END ==
LOC: M LAB REF 17:12
PROVIDERS: ATTEND Physician Assistant Medical
DX: N39.0 Urinary tract infection, site not specified (principal)

== ENCOUNTER → 2025-07-08 | Outpatient (CLI) | payer BC | LOC: M RAD 11:57 | PROVIDERS: ATTEND Internal Medicine | DX: M25.50 Pain in unspecified joint (principal) ==

== ENCOUNTER → 2025-07-26 | Outpatient (REF) | payer BC ==
[2025-07-26 15:36] LABS: AMORPHOUS SEDIMENT LARGE (NEGATIVE); APPEARANCE, URINE TURBID (CLEAR); BACTERIA, URINE AUTO NEGATIVE (NEGATIVE); BILIRUBIN, URINE AUTO NEGATIVE (NEGATIVE); BLOOD, URINE BLOOD 2+ (NEGATIVE); GLUCOSE, URINE (UA) AUTO NEGATIVE (NEGATIVE); KETONE, URINE AUTO NEGATIVE (NEGATIVE); LEUKOCYTE ESTERASE, URINE AUTO NEGATIVE (NEGATIVE); MUCUS, URINE LARGE (NEGATIVE); NITRITE, URINE AUTO NEGATIVE (NEGATIVE); PROTEIN, URINE AUTO NEGATIVE (NEGATIVE); RBC, URINE AUTO 0 /HPF (0-3); SPECIFIC GRAVITY URINE AUTO 1.020 (1.002-1.035); SQUAMOUS EPITHELIAL CELL UR AU 3 /HPF (0-6); UROBILINOGEN, URINE AUTO 0.2 mg/dL (0.0-2.0); WBC, URINE AUTO 0 /HPF (0-3)
== END ==
LOC: M SFHCRHEU 09:00
PROVIDERS: ATTEND Internal Medicine
DX: R31.9 Hematuria, unspecified (principal)

== ENCOUNTER → 2025-08-16 | Outpatient (REF) | payer BC ==
[2025-08-16 15:27] LABS: C REACTIVE PROTEIN QUANTITATIV < 0.50 MG/DL (<1.0)
[2025-08-16 15:31] LABS: TOTAL 25(OH) VITAMIN D 28.5 NG/ML (20.0-100.0)
== END ==
LOC: M SFHCRHEU 08:58
PROVIDERS: ATTEND Internal Medicine
DX: M25.431 Effusion, right wrist (principal); E55.9 Vitamin D deficiency, unspecified

== ENCOUNTER → 2025-09-24 | Outpatient (CLI) | payer BC | LOC: M PLAIMG 08:27 | PROVIDERS: ATTEND Internal Medicine | DX: M25.431 Effusion, right wrist (principal); M79.89 Other specified soft tissue disorders; M65.841 Other synovitis and tenosynovitis, right hand ==